=== PATIENT | female | born 1960 | race Caucasian/White ===

== ENCOUNTER 2017-01-22 00:43 | Emergency (ER) | payer MEDICARE, MEDICAID ==
[2017-01-22] MEDS ORDERED: NS 0.9% 1000 ML* 1,000 ML IV ONE (03:22)
[2017-01-22] MEDS ORDERED: predniSONE TAB* 20 MG PO ONE (03:23)
[2017-01-22] MEDS ORDERED: Albuterol/Ipratropium NEB.SOL* Albuterol 2.5 MG/Ipratropium 0.5 MG 3 ML INH ONE (03:23)
[2017-01-22] MEDS ORDERED: Magnesium Sulfate 1 GM IV* 1 GM/100 ML BAG IV ONE (03:24)
[2017-01-22 04:28] LABS: Hematocrit 42 % (35-47); Mean Corpuscular HGB Conc 33 g/dl (31-36); Mean Corpuscular Hemoglobin 31 pg (27-31); Mean Corpuscular Volume 94 fL (80-97); Mean Platelet Volume 7 um3 (7.4-10.4); Red Cell Distribution Width 14 % (10.5-15); White Blood Count 12.7 10^3/ul (3.5-10.8)
[2017-01-22 04:38] LABS: Blood Urea Nitrogen 10 mg/dL (6-24); CO2 Carbon Dioxide 30 mmol/L (22-32); Calcium 9.2 mg/dL (8.6-10.3); Chloride 101 mmol/L (101-111); EGFR African American 91.1 (>60); EGFR Non-African American 70.9 (>60); Glucose 104 mg/dL (70-100); Sodium 135 mmol/L (133-145)
[2017-01-22 04:42] LABS: Anion Gap 4 mmol/L (2-11)
[2017-01-22 05:46] VITALS: BP 101/57
--- NOTE | 2017-01-22 06:20 | ED ---
Candice López Gabriel, scribed for Manny Pennington MD on 01/22/17 at 0318 . Respiratory - HPI Summary HPI Summary: This patient is a 56 year old F presenting to [facility] accompanied by with a chief complaint of trouble breathing since 3 days ago. Patient reports NUNEZ, coughing, nasal congestion, chills, and bilateral LE cramping. Is on 2L NC at home. - History of Current Complaint Chief Complaint: EDShortnessOfBreath Stated Complaint: DIFF BREATHING Time Seen by Provider: 01/22/17 02:38 Hx Obtained From: Patient Onset/Duration: Lasting Days - 3, Still Present Timing: Constant Pain Intensity: 0 Character: Dyspnea on Exertion Aggravating Factor(s): Movement Associated Signs and Symptoms: SOB, Chills - Allergy/Home Medications Allergies/Adverse Reactions: Allergies Allergy/AdvReac Type Severity Reaction Status Date / Time Cefuroxime [From Ceftin] Allergy Hives Verified 01/22/17 02:35 Ciprofloxacin Allergy Hives Verified 01/22/17 02:35 Penicillins [PCN] Allergy Hives Verified 01/22/17 02:35 Sulfamethoxazole Allergy Hives Verified 01/22/17 02:34 w/Trimethoprim [From Bactrim] PMH/Surg Hx/FS Hx/Imm Hx Previously Healthy: No Endocrine/Hematology History: Denies: Hx Diabetes Respiratory History: Reports: Hx Chronic Obstructive Pulmonary Disease (COPD) - Immunization History Date of Influenza Vaccine: 12/2016 Infectious Disease History: No Infectious Disease History: Denies: Traveled Outside the [place] in Last 30 Days - Social History Alcohol Use: None Hx Substance Use: No Substance Use Type: Reports: None Hx Tobacco Use: Yes Smoking Status (MU): Former Smoker Review of Systems Positive: Chills Positive: Other - nasal congestion Positive: Shortness Of Breath, Cough, Other - NUNEZ Positive: Other - bilateral LE cramping All Other Systems Reviewed And Are Negative: Yes Physical Exam - Summary Physical Exam Summary: Appearance: Well appearing, no pain distress Skin: warm, dry, reflects adequate perfusion Head/face: normal Eyes: EOMI, DONAVON ENT: normal Clear nasal discharge Clear mucus in throat, no redness or tonsillar exudate no JVD, No strider in neck Neck: supple, non-tender Respiratory: Diminished breath sounds in left base, rustling breath sounds in periphery, no wheezings Cardiovascular: RRR, pulses symmetrical, tachycardia Abdomen: non-tender, soft Bowel: present Musculoskeletal: normal, strength/ROM intact Neuro: normal, sensory motor intact, A&Ox3 Triage Information Reviewed: Yes Vital Signs On Initial Exam: Initial Vitals Temp Pulse Resp BP Pulse Ox 98.4 F 105 20 124/74 97 01/22/17 00:48 01/22/17 00:48 01/22/17 00:48 01/22/17 00:48 01/22/17 00:48 Vital Signs Reviewed: Yes Diagnostics - Vital Signs Vital Signs Temp Pulse Resp BP Pulse Ox 01/22/17 02:30 94 21 105/69 98 01/22/17 02:16 93 21 96 01/22/17 02:15 112/76 01/22/17 00:48 98.4 F 105 20 124/74 97 - Laboratory Lab Results: Lab Results 01/22/17 01/22/17 01/22/17 Range/Units 04:05 04:05 04:05 WBC 12.7 H (3.5-10.8) 10^3/ul RBC 4.50 (4.0-5.4) 10^6/ul Hgb 14.0 (12.0-16.0) g/dl Hct 42 (35-47) % MCV 94 (80-97) fL MCH 31 (27-31) pg MCHC 33 (31-36) g/dl RDW 14 (10.5-15) % Plt Count 241 (150-450) 10^3/ul MPV 7 L (7.4-10.4) um3 Neut % (Auto) 73.2 (38-83) % Lymph % (Auto) 15.3 L (25-47) % [place] % (Auto) 8.0 (1-9) % Eos % (Auto) 2.2 (0-6) % Baso % (Auto) 1.3 (0-2) % Absolute Neuts (auto) 9.3 H (1.5-7.7) 10^3/ul Absolute Lymphs (auto) 2.0 (1.0-4.8) 10^3/ul Absolute Monos (auto) 1.0 H (0-0.8) 10^3/ul Absolute Eos (auto) 0.3 (0-0.6) 10^3/ul Absolute Basos (auto) 0.2 (0-0.2) 10^3/ul Absolute Nucleated RBC 0.01 10^3/ul Nucleated RBC % 0 Sodium 135 (133-145) mmol/L Potassium TNP Chloride 101 (101-111) mmol/L Carbon Dioxide 30 (22-32) mmol/L Anion Gap 4 (2-11) mmol/L BUN 10 (6-24) mg/dL Creatinine 0.83 (0.51-0.95) mg/dL Est GFR ( Amer) 91.1 (>60) Est GFR (Non-Af Amer) 70.9 (>60) BUN/Creatinine Ratio 12.0 (8-20) Glucose 104 H (70-100) mg/dL Lactic Acid 1.5 (0.5-2.0) mmol/L Calcium 9.2 (8.6-10.3) mg/dL Result Diagrams: 01/22/17 04:05 01/22/17 04:05 Lab Statement: Any lab studies that have been ordered have been reviewed, and results considered in the medical decision making process. - Radiology CXR Radiology Interpretation Completed By: ED Physician - No infiltrate, COPD - EKG 02:30 Cardiac Rate: NL EKG Rhythm: Sinus Rhythm - NSR at [address] Segment: Non-Specific EKG Interpretation: RAD Re-Evaluation - Re-Evaluation First Eval Re-Evaluation Time: 05:00 Change: Improved - Patient is feeling better after treatment Disposition - Course Course Of Treatment: pt with long standing COPD with increased SOB and mild viral sx. Tx here with improvement. IV access was unable to remain intact. She felt much better, sats were good and she was able to discharge. Cont outpt steroids, abx and refill Rx for nebs. - Differential Dx - Cardiopulmonary Differential Diagnoses - Cardiopulmonary: Exacerbation Of COPD, Lower Resp Infection, Pulmonary Edema - Diagnoses Provider Diagnoses: COPD exacerbation Discharge - Discharge Plan Condition: Improved Disposition: HOME Prescriptions: Albuterol 2.5MG/3ML (0.083%)* [Ventolin 2.5 MG/3 ML NEB.JIMMY*] 2.5 mg INH Q4H # 100 neb.jimmy Albuterol/Ipratropium NEB.JIMMY* [Duoneb (Albuterol 2.5 MG/Ipratropium 0.5 MG)] 1 neb INH Q6H PRN #30 neb.jimmy PRN Reason: Shortness Of Breath Levofloxacin TAB* [Levaquin TAB*] 500 mg PO DAILY #7 tab predniSONE TAB* [Deltasone TAB*] 50 mg PO DAILY #5 tab Patient Education Materials: COPD (Chronic Obstructive Pulmonary Disease) (ED) Referrals: Willy Lemon [Primary Care Provider] - Additional Instructions: Use breathing treatments every 4hrs until well. Return with fever, worse, new symptoms or other concerns. Call and inform your glaze handler that you had to come to ER and are on steroids. The documentation as recorded by the Candice villalta Gabriel accurately reflects the service I personally performed and the decisions made by , Manny Pennington MD.
--- NOTE | 2017-01-22 08:17 | RAD ---
Indication: Shortness of breath. 2 views of the chest including dual energy PA views demonstrates hyperinflated lung sellers. No evidence of alveolar consolidation is noted. No pleural fluid is identified. IMPRESSION: Hyperinflated lung sellers are noted. No active cardiopulmonary disease is noted.
== END 2017-01-22 05:40 | disposition home or self-care (01) ==
LOC: ED 00:43
DX: J44.1 Chronic obstructive pulmonary disease with (acute) exacerbation (principal); Z87.891 Personal history of nicotine dependence; Z88.0 Allergy status to penicillin; Z88.2 Allergy status to sulfonamides
CPT/HCPCS: 36415; 71020; 80048; 83605; 85025; 93005; 94640; 96360; 96374; 99284; A9270-GY; J3475; J7512

== ENCOUNTER 2017-02-19 10:17 | Observation (INO) | payer MEDICARE, MEDICAID ==
[2017-02-19] MEDS ORDERED: NS 0.9% 1000 ML*IV.FLUID IV ONE (10:42)
[2017-02-19] MEDS ORDERED: Albuterol/Ipratropium NEB.SOL* Albuterol 2.5 MG/Ipratropium 0.5 MG 3 ML INH ONE (10:43)
[2017-02-19] MEDS ORDERED: methylPREDNISolone 125 MG* 2 ML VIAL IV ONE (10:45)
[2017-02-19] MEDS ORDERED: Levofloxacin 750 MG IVPREMIX(* 750 MG/150 ML BAG IVPB ONE (10:45)
[2017-02-19 11:24] LABS: Eosinophil % 2.1 % (0-6); Hematocrit 41 % (35-47); Hemoglobin 13.6 g/dl (12.0-16.0); Lymphocyte % 16.6 % (25-47); Mean Corpuscular HGB Conc 33 g/dl (31-36); Mean Corpuscular Hemoglobin 31 pg (27-31); Mean Corpuscular Volume 94 fL (80-97); Nucleated Red Blood Cells % 0; Red Blood Count 4.39 10^6/ul (4.0-5.4); Red Cell Distribution Width 14 % (10.5-15)
[2017-02-19 11:32] LABS: INR 1.02 (0.77-1.02)
[2017-02-19 11:46] LABS: EGFR Non-African American 77.3 (>60)
[2017-02-19 11:51] LABS: Platelet Count 187 10^3/ul (150-450); White Blood Count 13.6 10^3/ul (3.5-10.8)
[2017-02-19 11:54] LABS: ABS Basophils 0.1 10^3/ul (0-0.2); ABS Eosinophils 0.3 10^3/ul (0-0.6); ABS Lymphocytes 2.3 10^3/ul (1.0-4.8); ABS Monocytes 1.2 10^3/ul (0-0.8); ABS Neutrophils 9.7 10^3/ul (1.5-7.7); ABS Nucleated RBC 0 10^3/ul
--- NOTE | 2017-02-19 12:30 | RAD ---
Indication: Shortness of breath, tachycardia. COPD. Comparison: January 22, 2017 Technique: Upright AP 1155 hours Report: Elevated lung volumes and both diffuse mild prominence of the interstitial markings and patchy rarefaction of the mid to upper lung zone interstitial markings. No focal pulmonary lesion, compelling alveolar consolidation, pleural effusion, pneumothorax. The heart, pulmonary vasculature, and mediastinal contours are unremarkable. IMPRESSION: Stigmata of obstructive lung disease. No acute pulmonary or cardiac process evident.
[2017-02-19] MEDS ORDERED: NS 0.9% 1000 ML* 1,000 ML IV ONE (14:45)
[2017-02-19 15:07] LABS: Urine Appearance Clear; Urine Blood 1+ (Negative); Urine Color Straw; Urine Ketones Negative (Negative); Urine Protein Negative (Negative); Urine Specific Gravity 1.003 (1.010-1.030); Urine Urobilinogen Negative (Negative)
[2017-02-19] MEDS ORDERED: Acetaminophen TAB* 325 MG PO PRN (17:39)
[2017-02-19] MEDS ORDERED: Al Hydrox/Mg Hydrox/Simet LIQ* 30 ML UDC PO PRN (17:39)
[2017-02-19] MEDS ORDERED: NS 0.9% 1000 ML* 1,000 ML IV SCH (17:45)
[2017-02-19] MEDS ORDERED: Atorvastatin* 20 MG TAB PO SCH (17:52)
[2017-02-19] MEDS ORDERED: traMADol TAB* 50 MG PO PRN (17:54)
--- NOTE | 2017-02-19 18:12 | ED ---
Fernanda López Abhishek, scribed for Jalen Kendrick MD on 02/19/17 at 1055 . Shortness of Breath - HPI Summary HPI Summary: This patient is a 56 year old F BIBA with a chief complaint of SOB since a few days ago. The patient rates the pain 0/10 in severity. Symptoms aggravated by nothing. Symptoms alleviated by nothing. Patient reports chills, diaphoresis, and vomited (one week ago), and pedal edema. Patient denies fevers, and abd pain , dysuria, painful urination, and diarrhea. Pt is taking aspirin 81 mg. (blood thinner), and also simvastatin (asthma). Pts pertinent PMHx includes COPD. - History of Current Complaint Chief Complaint: EDShortnessOfBreath Time Seen by Provider: 02/19/17 10:36 Hx Obtained From: Patient Onset/Duration: Gradual Onset - since a few days ago Aggrevating Factors: Nothing Alleviating Factors: Nothing Associated Signs & Symptoms: Chills, Diaphoresis, Edema - pedal - Allergy/Home Medications Allergies/Adverse Reactions: Allergies Allergy/AdvReac Type Severity Reaction Status Date / Time Cefuroxime [From Ceftin] Allergy Hives Verified 01/22/17 02:35 Ciprofloxacin Allergy Hives Verified 01/22/17 02:35 Penicillins [PCN] Allergy Hives Verified 01/22/17 02:35 Sulfamethoxazole Allergy Hives Verified 01/22/17 02:34 w/Trimethoprim [From Bactrim] PMH/Surg Hx/FS Hx/Imm Hx Endocrine/Hematology History: Denies: Hx Diabetes Respiratory History: Reports: Hx Asthma, Hx Chronic Obstructive Pulmonary Disease (COPD) - Immunization History Date of Influenza Vaccine: 12/09 Immunizations Up to Date: Yes Infectious Disease History: No Infectious Disease History: Denies: Traveled Outside the [place] in Last 30 Days - Family History Known Family History: Positive: Cardiac Disease, Hypertension, Diabetes - Social History Alcohol Use: None Hx Substance Use: No Substance Use Type: Reports: None Hx Tobacco Use: Yes Smoking Status (MU): Former Smoker Review of Systems Positive: Chills, Skin Diaphoresis. Negative: Fever ENT: Negative Cardiovascular: Negative Positive: Shortness Of Breath Positive: Vomiting. Negative: Abdominal Pain, Diarrhea Negative: dysuria, pain Positive: Edema - pedal Skin: Negative Neurological: Negative Psychological: Normal All Other Systems Reviewed And Are Negative: Yes Physical Exam - Summary Physical Exam Summary: General: Mildly ill appearing , no pain distress Skin: warm, color reflects adequate perfusion, dry Head: normal Eyes: EOMI, DONAVON ENT: Oral mucous dry Neck: supple, nontender Respiratory: Occasional wheezes Cardiovascular: Tachycardic Abdomen: soft, nontender Bowel: present Musculoskeletal: normal, strength/ROM intact, No pedal edema and no calf tenderness Neurological: normal, sensory/motor intact, A&O x3 Psychological: affect/mood appropriate Triage Information Reviewed: Yes Vital Signs On Initial Exam: Initial Vitals Temp Pulse Resp BP Pulse Ox 99.4 F 129 17 105/71 93 02/19/17 10:23 02/19/17 10:23 02/19/17 10:23 02/19/17 10:23 02/19/17 10:23 Vital Signs Reviewed: Yes - [place] Coma Scale Coma Scale Total: 15 Diagnostics - Vital Signs Vital Signs Temp Pulse Resp BP Pulse Ox 02/19/17 10:23 99.4 F 129 17 105/71 93 - Laboratory Lab Results: Lab Results 02/19/17 02/19/17 02/19/17 Range/Units 11:04 11:04 11:04 WBC (3.5-10.8) 10^3/ul RBC (4.0-5.4) 10^6/ul Hgb (12.0-16.0) g/dl Hct (35-47) % MCV (80-97) fL MCH (27-31) pg MCHC (31-36) g/dl RDW (10.5-15) % Plt Count (150-450) 10^3/ul MPV Neut % (Auto) (38-83) % Lymph % (Auto) (25-47) % Alpine % (Auto) (1-9) % Eos % (Auto) (0-6) % Baso % (Auto) (0-2) % Absolute Neuts (auto) (1.5-7.7) 10^3/ul Absolute Lymphs (auto) (1.0-4.8) 10^3/ul Absolute Monos (auto) (0-0.8) 10^3/ul Absolute Eos (auto) (0-0.6) 10^3/ul Absolute Basos (auto) (0-0.2) 10^3/ul Absolute Nucleated RBC 10^3/ul Nucleated RBC % INR (Anticoag Therapy) 1.02 (0.77-1.02) APTT 27.1 (26.0-36.3) seconds Sodium 134 (133-145) mmol/L Potassium 3.8 (3.5-5.0) mmol/L Chloride 98 L (101-111) mmol/L Carbon Dioxide 29 (22-32) mmol/L Anion Gap 7 (2-11) mmol/L BUN 7 (6-24) mg/dL Creatinine 0.77 (0.51-0.95) mg/dL Est GFR ( Amer) 99.4 (>60) Est GFR (Non-Af Amer) 77.3 (>60) BUN/Creatinine Ratio 9.1 (8-20) Glucose 132 H (70-100) mg/dL Lactic Acid (0.5-2.0) mmol/L Calcium 9.6 (8.6-10.3) mg/dL Total Bilirubin 0.80 (0.2-1.0) mg/dL AST 21 (13-39) U/L ALT 9 (7-52) U/L Alkaline Phosphatase 61 (34-104) U/L Total Creatine Kinase 63 (10-223) U/L Troponin I 0.00 (<0.04) ng/mL C-Reactive Protein 67.08 H (< 5.00) mg/L B-Natriuretic Peptide 27 ( - 100) pg/mL Total Protein 7.6 (6.4-8.9) g/dL Albumin 3.7 (3.2-5.2) g/dL Globulin 3.9 (2-4) g/dL Albumin/Globulin Ratio 0.9 L (1-3) Procalcitonin (<0.6) ng/mL Urine Color Urine Appearance Urine pH (5-9) Ur Specific Maynard (1.010-1.030) Urine Protein (Negative) Urine Ketones (Negative) Urine Blood (Negative) Urine Nitrate (Negative) Urine Bilirubin (Negative) Urine Urobilinogen (Negative) Ur Leukocyte Esterase (Negative) Urine WBC (Auto) (Absent) Urine RBC (Auto) (Absent) Ur Squamous Epith Cells (Absent) Urine Bacteria (Absent) Urine Glucose (Negative) Influenza A (Rapid) (Negative) Influenza B (Rapid) (Negative) 02/19/17 02/19/17 02/19/17 Range/Units 11:04 11:04 11:04 WBC 13.6 H (3.5-10.8) 10^3/ul RBC 4.39 (4.0-5.4) 10^6/ul Hgb 13.6 (12.0-16.0) g/dl Hct 41 (35-47) % MCV 94 (80-97) fL MCH 31 (27-31) pg MCHC 33 (31-36) g/dl RDW 14 (10.5-15) % Plt Count 187 (150-450) 10^3/ul MPV Not Reportable Neut % (Auto) 71.5 (38-83) % Lymph % (Auto) 16.6 L (25-47) % Alpine % (Auto) 9.0 (1-9) % Eos % (Auto) 2.1 (0-6) % Baso % (Auto) 0.8 (0-2) % Absolute Neuts (auto) 9.7 H (1.5-7.7) 10^3/ul Absolute Lymphs (auto) 2.3 (1.0-4.8) 10^3/ul Absolute Monos (auto) 1.2 H (0-0.8) 10^3/ul Absolute Eos (auto) 0.3 (0-0.6) 10^3/ul Absolute Basos (auto) 0.1 (0-0.2) 10^3/ul Absolute Nucleated RBC 0 10^3/ul Nucleated RBC % 0 INR (Anticoag Therapy) (0.77-1.02) APTT (26.0-36.3) seconds Sodium (133-145) mmol/L Potassium (3.5-5.0) mmol/L Chloride (101-111) mmol/L Carbon Dioxide (22-32) mmol/L Anion Gap (2-11) mmol/L BUN (6-24) mg/dL Creatinine (0.51-0.95) mg/dL Est GFR ( Amer) (>60) Est GFR (Non-Af Amer) (>60) BUN/Creatinine Ratio (8-20) Glucose (70-100) mg/dL Lactic Acid 1.3 (0.5-2.0) mmol/L Calcium (8.6-10.3) mg/dL Total Bilirubin (0.2-1.0) mg/dL AST (13-39) U/L ALT (7-52) U/L Alkaline Phosphatase (34-104) U/L Total Creatine Kinase (10-223) U/L Troponin I (<0.04) ng/mL C-Reactive Protein (< 5.00) mg/L B-Natriuretic Peptide ( - 100) pg/mL Total Protein (6.4-8.9) g/dL Albumin (3.2-5.2) g/dL Globulin (2-4) g/dL Albumin/Globulin Ratio (1-3) Procalcitonin 0.1 (<0.6) ng/mL Urine Color Urine Appearance Urine pH (5-9) Ur Specific Maynard (1.010-1.030) Urine Protein (Negative) Urine Ketones (Negative) Urine Blood (Negative) Urine Nitrate (Negative) Urine Bilirubin (Negative) Urine Urobilinogen (Negative) Ur Leukocyte Esterase (Negative) Urine WBC (Auto) (Absent) Urine RBC (Auto) (Absent) Ur Squamous Epith Cells (Absent) Urine Bacteria (Absent) Urine Glucose (Negative) Influenza A (Rapid) (Negative) Influenza B (Rapid) (Negative) 02/19/17 02/19/17 Range/Units 12:23 14:49 WBC (3.5-10.8) 10^3/ul RBC (4.0-5.4) 10^6/ul Hgb (12.0-16.0) g/dl Hct (35-47) % MCV (80-97) fL MCH (27-31) pg MCHC (31-36) g/dl RDW (10.5-15) % Plt Count (150-450) 10^3/ul MPV Neut % (Auto) (38-83) % Lymph % (Auto) (25-47) % Alpine % (Auto) (1-9) % Eos % (Auto) (0-6) % Baso % (Auto) (0-2) % Absolute Neuts (auto) (1.5-7.7) 10^3/ul Absolute Lymphs (auto) (1.0-4.8) 10^3/ul Absolute Monos (auto) (0-0.8) 10^3/ul Absolute Eos (auto) (0-0.6) 10^3/ul Absolute Basos (auto) (0-0.2) 10^3/ul Absolute Nucleated RBC 10^3/ul Nucleated RBC % INR (Anticoag Therapy) (0.77-1.02) APTT (26.0-36.3) seconds Sodium (133-145) mmol/L Potassium (3.5-5.0) mmol/L Chloride (101-111) mmol/L Carbon Dioxide (22-32) mmol/L Anion Gap (2-11) mmol/L BUN (6-24) mg/dL Creatinine (0.51-0.95) mg/dL Est GFR ( Amer) (>60) Est GFR (Non-Af Amer) (>60) BUN/Creatinine Ratio (8-20) Glucose (70-100) mg/dL Lactic Acid (0.5-2.0) mmol/L Calcium (8.6-10.3) mg/dL Total Bilirubin (0.2-1.0) mg/dL AST (13-39) U/L ALT (7-52) U/L Alkaline Phosphatase (34-104) U/L Total Creatine Kinase (10-223) U/L Troponin I (<0.04) ng/mL C-Reactive Protein (< 5.00) mg/L B-Natriuretic Peptide ( - 100) pg/mL Total Protein (6.4-8.9) g/dL Albumin (3.2-5.2) g/dL Globulin (2-4) g/dL Albumin/Globulin Ratio (1-3) Procalcitonin (<0.6) ng/mL Urine Color Straw Urine Appearance Clear Urine pH 6.0 (5-9) Ur Specific Maynard 1.003 L (1.010-1.030) Urine Protein Negative (Negative) Urine Ketones Negative (Negative) Urine Blood 1+ H (Negative) Urine Nitrate Negative (Negative) Urine Bilirubin Negative (Negative) Urine Urobilinogen Negative (Negative) Ur Leukocyte Esterase Negative (Negative) Urine WBC (Auto) Absent (Absent) Urine RBC (Auto) Trace(0-2/hpf) (Absent) Ur Squamous Epith Cells Present H (Absent) Urine Bacteria Absent (Absent) Urine Glucose Negative (Negative) Influenza A (Rapid) Negative (Negative) Influenza B (Rapid) Negative (Negative) Result Diagrams: 02/19/17 11:04 02/19/17 11:04 Lab Statement: Any lab studies that have been ordered have been reviewed, and results considered in the medical decision making process. - Radiology Chest X-ray Radiology Interpretation Completed By: Radiologist - CXR reveals, per radiologist, ? Stigmata of obstructive lung disease. No acute pulmonary or cardiac process evident. ED physician has reviewed this radiology report and agrees. - EKG 1045 EKG Rhythm: Sinus Tachycardia - 119 bpm Ectopy: None EKG Interpretation: An EKG at 1045 reveals borderline t-wave abnormalities Course/Dx - Course Course Of Treatment: ADMIT HOSPITALIST. CRITICAL CARE TIME LESS THAN 30 MINUTES. - Diagnoses Provider Diagnoses: COPD exacerbation, Bronchitis Discharge - Discharge Plan Condition: Stable Disposition: ADMITTED TO [facility] documentation as recorded by the Fernanda villalta Abhishek accurately reflects the service I personally performed and the decisions made by me, Jalen Kendrick MD.
[2017-02-19] MEDS: Albuterol 2.5 MG/3 ML NEB.SOL* (0.083%) INH SCH (21:02)
[2017-02-19] MEDS: Mometasone/Formoter 200/5 MDI INH SCH (21:05)
[2017-02-19] MEDS: Heparin VIAL(*) 5000 UNITS/ML VIAL (FIVE THOUSAND) SUBCUT SCH (21:51)
[2017-02-20] MEDS: Albuterol 2.5 MG/3 ML NEB.SOL* (0.083%) INH SCH ×3 (01:17→13:11)
[2017-02-20] MEDS ORDERED: Amitriptyline TAB* 25 MG PO SCH (01:53)
[2017-02-20] MEDS: Gabapentin CAP(*) 300 MG PO SCH ×2 (02:11→08:57)
--- NOTE | 2017-02-20 02:39 | HP ---
CC: [facility] * HISTORY AND PHYSICAL: DATE OF ADMISSION: 02/19/17 PROVIDER: Darlene Wiggins NP PRIMARY CARE PHYSICIAN: [facility]. ATTENDING PHYSICIAN WHILE IN THE HOSPITAL: Dr. Dusty Cortes * (report dictated by Darlene Wiggins NP). CHIEF COMPLAINT: 1. Shortness of breath. 2. COPD exacerbation. HISTORY OF PRESENT ILLNESS: Ms. Dixon is a 56year-old female patient. She carries a history of COPD, leukemia, which has been in remission for 11 years, GERD, and hypothyroidism, and she presented to the emergency room today with a 2 -day history of shortness of breath, fever and chills. She also reports that she has had a cough for the past 2 days and is productive with yellow green sputum. She does report that she does have chest pain with deep breath and cough that is reproducible. She denies any other symptoms. Denies nausea, vomiting, or diarrhea. Denies dysuria. She does report increased shortness of breath over the past 2 days. She also reports that she has had chills and positive for sweats. She denies any loss of appetite. She denies any edema. She denies any rashes or lesions. She denies any loss of consciousness. No fevers were reported. During her emergency room stay, routine lab work was obtained. Her white count was 13.6. C-reactive protein was 67.08. She did have a chest x-ray, which showed stigmata of obstructive lung disease, no acute pulmonary cardiac process is evident. She also did have an EKG that showed sinus tachycardia. While in the emergency room, she did receive Levaquin 750 mg. She also received Solu-Medrol 125. She received normal saline bolus. Blood cultures were also ordered and obtained. We were asked to see and evaluate the patient for admission due to her increased shortness of breath and COPD exacerbation. PAST MEDICAL HISTORY: Significant for: 1. COPD. 2. Leukemia, which she has been in remission x11 years. 3. GERD. 4. Hypothyroidism. 5. High cholesterol. MEDICATIONS: 1. Advair. 2. Spiriva. 3. Albuterol nebulizer. 4. Levothyroxine 125 mcg. 5. Tramadol. ALLERGIES TO MEDICATIONS: Include: 1. CEFTIN. 2. CIPRO. 3. PENICILLIN. 4. BACTRIM. She says that she has a rash with antibiotics. FAMILY HISTORY: Father and mother both with cardiac history of coronary artery disease. Father had first GA at the age of 35. Mother had an GA at age of 60 with multiple strokes. Diabetes in mother, 3 brothers and her sister all had diabetes and cancer. Father had lung cancer. SOCIAL HISTORY: The patient is a former smoker. She quit 7 to 8 years ago. Prior to that, she smoked a pack a day for approximately 30 years. She denies any alcohol use. Denies drug use. She is currently disabled. She is . In the event, she is unable to make her own medical decision, her surrogate decision maker is her son, Rk Dixon, SALLY or her son, Soren Dixon. REVIEW OF SYSTEMS: There was no documented fever. There has been no significant weight change. There was no double vision. No ear discharge. Denies any rhinorrhea. Denies sore throat. She does report chest pain with deep breath and coughing that is reproducible. She does report that she has had increased shortness of breath and she also reports cough. She denies abdominal pain. Denies nausea, vomiting or diarrhea. Denies dysuria or frequency. Denies hematuria. Denies any seizures. Denies loss of consciousness. Denies any pruritus or skin ulcerations. Denies any difficulty swallowing. She does report that she has chronic muscle and joint aches. A review of 14 systems was completed and all others were negative. PHYSICAL EXAMINATION GENERAL: At this time, Ms. Dixon is a 56-year-old female. She appears to be in no acute distress, sitting on the stretcher in the emergency room. VITAL SIGNS: Blood pressure was 109/60, heart rate is 85, respirations are 18, O2 sat is 99% on 4 L nasal cannula. Initially, on arrival to the ER, she was 105/71, her blood pressure has been as low as 70/50. HEENT: Head is atraumatic, normocephalic. Eyes: EOMs are intact. Sclerae anicteric, not pale. Oral mucosa appeared to be moist. NECK: Supple. LUNGS: Lung sounds are diminished throughout. She does have rhonchi in the right base. There is no accessory muscle use noted. There is no wheezing at this time. CARDIAC: Heart sounds S1, S2. Regular rate and rhythm. There are no murmurs, rubs, or gallops. She is regular rate and rhythm. ABDOMEN: Soft and nontender. Bowel sounds are present x4. EXTREMITIES: Pulses are +2 throughout. She does move all extremities. Strength is 5/5. There is no edema noted. NEUROLOGIC: She is alert and oriented x3. Her speech is clear and there are no gross focal deficits noted. SKIN: Intact. DIAGNOSTIC STUDIES: WBC is 13.6, hemoglobin is 13.6, hematocrit of 41, platelet count was 187. INR is 1.02. Sodium was 134, potassium 3.8, chloride 98, carbon dioxide 29, BUN 7, creatinine 0.77, troponin was 0.00. Glucose was 132, calcium was 9.6. C-reactive protein was 67.08. BNP was 27. EKG today shows a rhythm at a rate of 99. Chest x-ray showed stigmata of obstructive lung disease, no acute pulmonary or cardiac process is evident. This is the radiologist's impression. ASSESSMENT AND PLAN: Ms. Dixon is a 56-year-old female that presented to the emergency room today with complaints of increased shortness of breath and cough for the past 2 days. We were asked to evaluate because of her increased shortness of breath and elevated white count. She will be admitted inpatient form. 1. Chronic obstructive pulmonary disease exacerbation. We will titrate her oxygen to be keep sats above 92%, albuterol nebs q.6 hours as needed for shortness of breath. We will continue her Advair. We will continue her Spiriva. She will be placed on prednisone 50 mg p.o. daily. I will also start her on Levaquin 500 mg IV every 24 hours. 2. Leukocytosis. I suspect this is related to the chronic use of steroids. Blood cultures are pending at this time. She has a sputum culture C and S sent. 3. Hypothyroid. We will continue on her levothyroxine 125 mcg. 4. Palpitations. The patient reports that EMS told her she was in atrial fibrillation. We will place her on telemetry and monitor her heart rate and rhythm. She does report that she does get palpitations when she gets short of breath. I will repeat a TSH in the morning. 5. FEN. She will be placed on a regular diet. 6. Code status. She is a full code. 7. DVT prophylaxis. She will be placed on heparin subcu. 8. Disposition. She will be admitted. TIME SPENT: Time spent on this admission was approximately 60 minutes, greater than half the time was spent [id number] with the patient obtaining my history and physical, the other half of the time has been going over my plan of care with the patient and implementing the plan of care. I have discussed my plan of care with my attending, Dr. Dusty Cortes, and he is in agreement with my plan. DARLENE WIGGINS, FINANCIAL [employer]STITUTION VICE PRESIDENT [id number]/[facility] #: [id number] ARISTEO
[2017-02-20] MEDS: Heparin VIAL(*) 5000 UNITS/ML VIAL (FIVE THOUSAND) SUBCUT SCH ×2 (05:31→15:40)
[2017-02-20] MEDS ORDERED: Levothyroxine TAB* 125 MCG TAB PO SCH (06:00)
[2017-02-20 07:39] LABS: ABS Basophils 0 10^3/ul (0-0.2); ABS Eosinophils 0 10^3/ul (0-0.6); ABS Lymphocytes 0.5 10^3/ul (1.0-4.8); ABS Monocytes 0.5 10^3/ul (0-0.8); ABS Neutrophils 6.5 10^3/ul (1.5-7.7); ABS Nucleated RBC 0.01 10^3/ul; Eosinophil % 0 % (0-6); Hematocrit 36 % (35-47); Hemoglobin 12.3 g/dl (12.0-16.0); Lymphocyte % 6.6 % (25-47); Mean Corpuscular HGB Conc 34 g/dl (31-36); Mean Corpuscular Hemoglobin 31 pg (27-31); Mean Corpuscular Volume 93 fL (80-97); Mean Platelet Volume 7 um3 (7.4-10.4); Nucleated Red Blood Cells % 0.1; Platelet Count 172 10^3/ul (150-450); Red Blood Count 3.91 10^6/ul (4.0-5.4); Red Cell Distribution Width 14 % (10.5-15); White Blood Count 7.5 10^3/ul (3.5-10.8)
[2017-02-20 07:41] VITALS: BP 123/66
[2017-02-20] MEDS: Mometasone/Formoter 200/5 MDI INH SCH (07:58)
[2017-02-20 08:04] LABS: EGFR Non-African American 95.6 (>60)
[2017-02-20] MEDS ORDERED: predniSONE TAB* 50 MG PO SCH (09:00)
[2017-02-20] MEDS ORDERED: Tiotropium CAP.INH* CAP.INH/18 MCG (USE ORDER SET !) INH SCH (09:00)
[2017-02-20] MEDS ORDERED: Spiriva Inhaler DEVICE* 1 EACH DEVICE INH ONE (09:00)
[2017-02-20] MEDS ORDERED: Levofloxacin 500 MG IVPREMIX(* 500 MG/100 ML BAG IVPB SCH (11:00)
--- NOTE | 2017-02-20 12:36 | PN ---
Subjective Date of Service: 02/20/17 Interval History: Awake to verbal stimuli. States that her breathing is better. c/o generalized chest pain with deep breath and cough. Reproducible. Denies increased shortness of breath. Denies fever or chills. Denies nausea, vomiting or diarrhea. Denies abd pain. Denies urinary symptoms. Family History: Unchanged from Admission Social History: Unchanged from Admission Past Medical History: Unchanged from Admission Objective Active Medications: Acetaminophen (Tylenol Tab*) 650 mg PO Q4H PRN PRN Reason: FEVER/PAIN Al Hydrox/Mg Hydrox/Simethicone (Maalox Plus*) 30 ml PO Q6H PRN PRN Reason: INDIGESTION Albuterol (Ventolin 2.5 Mg/3 Ml Neb.Yanni*) 2.5 mg INH [id number] AWAKE [facility] Last Admin: 02/20/17 07:55 Dose: 2.5 mg Amitriptyline HCl (Elavil Tab*) 25 mg PO BEDTIME [facility] Last Admin: 02/20/17 02:11 Dose: 25 mg Atorvastatin Calcium (Lipitor*) 20 mg PO 1700 [facility] Last Admin: 02/19/17 18:58 Dose: 20 mg Gabapentin (Neurontin Cap(*)) 300 mg PO BID [facility] Last Admin: 02/20/17 08:57 Dose: 300 mg Heparin Sodium (Porcine) (Heparin Vial(*)) 5,000 units SUBCUT Q8HR [facility] Last Admin: 02/20/17 05:31 Dose: 5,000 units Sodium Chloride (Ns 0.9% 1000 Ml*) 1,000 mls @ 75 mls/hr IV PER RATE [facility] Last Admin: 02/19/17 18:34 Dose: 75 mls/hr Levofloxacin/Dextrose (Levaquin 500 Mg Ivpremix(*)) 500 mg in 100 mls @ 100 mls /hr IVPB 1100 [facility] Last Admin: 02/20/17 10:38 Dose: 100 mls/hr Levothyroxine Sodium (Synthroid Tab*) 125 mcg PO 0600 [facility] Last Admin: 02/20/17 05:31 Dose: 125 mcg Mometasone Furoate/Formoterol Fumar (Dulera 200/5 Mdi*) 2 puff INH BID [facility] Last Admin: 02/20/17 07:58 Dose: 2 puff Prednisone (Deltasone Tab*) 50 mg PO DAILY [facility] Last Admin: 02/20/17 08:57 Dose: 50 mg Tiotropium Cosby (Spiriva Cap.Inh*) 1 cap INH DAILY [facility] Last Admin: 02/20/17 07:57 Dose: 1 cap Tramadol HCl (Ultram*) 50 mg PO Q6H PRN PRN Reason: PAIN Vital Signs - 8 hr 02/20/17 02/20/17 02/20/17 07:32 07:55 08:00 Temperature 98.0 F Pulse Rate 87 88 Respiratory 17 18 16 Rate Blood Pressure 123/66 (mmHg) O2 Sat by Pulse 97 97 98 Oximetry 02/20/17 02/20/17 08:57 11:33 Temperature Pulse Rate Respiratory 18 16 Rate Blood Pressure (mmHg) O2 Sat by Pulse Oximetry Oxygen Devices in Use Now: Nasal Cannula - 2 liters Appearance: awake and alert to verbal, appears comfortable Ears/Nose/Mouth/Throat: Mucous Membranes Moist Neck: NL Appearance and Movements; NL JVP, Trachea Midline Respiratory: Symmetrical Chest Expansion and Respiratory Effort, - - diminshed on the right Cardiovascular: NL Sounds; No Murmurs; No JVD, RRR, No Edema Abdominal: NL Sounds; No Tenderness; No Distention Extremities: No Edema, No Clubbing, Cyanosis Skin: No Rash or Ulcers Neurological: Alert and Oriented x 3 Result Diagrams: 02/20/17 06:53 02/20/17 06:53 Additional Lab and Data: Lab Results 02/19/17 02/19/17 02/19/17 Range/Units 11:04 11:04 11:04 WBC (3.5-10.8) 10^3/ul RBC (4.0-5.4) 10^6/ul Hgb (12.0-16.0) g/dl Hct (35-47) % MCV (80-97) fL MCH (27-31) pg MCHC (31-36) g/dl RDW (10.5-15) % Plt Count (150-450) 10^3/ul MPV Neut % (Auto) (38-83) % Lymph % (Auto) (25-47) % [place] % (Auto) (1-9) % Eos % (Auto) (0-6) % Baso % (Auto) (0-2) % Absolute Neuts (auto) (1.5-7.7) 10^3/ul Absolute Lymphs (auto) (1.0-4.8) 10^3/ul Absolute Monos (auto) (0-0.8) 10^3/ul Absolute Eos (auto) (0-0.6) 10^3/ul Absolute Basos (auto) (0-0.2) 10^3/ul Absolute Nucleated RBC 10^3/ul Nucleated RBC % INR (Anticoag Therapy) 1.02 (0.77-1.02) APTT 27.1 (26.0-36.3) seconds Sodium 134 (133-145) mmol/L Potassium 3.8 (3.5-5.0) mmol/L Chloride 98 L (101-111) mmol/L Carbon Dioxide 29 (22-32) mmol/L Anion Gap 7 (2-11) mmol/L BUN 7 (6-24) mg/dL Creatinine 0.77 (0.51-0.95) mg/dL Est GFR ( Amer) 99.4 (>60) Est GFR (Non-Af Amer) 77.3 (>60) BUN/Creatinine Ratio 9.1 (8-20) Glucose 132 H (70-100) mg/dL Lactic Acid (0.5-2.0) mmol/L Calcium 9.6 (8.6-10.3) mg/dL Total Bilirubin 0.80 (0.2-1.0) mg/dL AST 21 (13-39) U/L ALT 9 (7-52) U/L Alkaline Phosphatase 61 (34-104) U/L Total Creatine Kinase 63 (10-223) U/L Troponin I 0.00 (<0.04) ng/mL C-Reactive Protein 67.08 H (< 5.00) mg/L B-Natriuretic Peptide 27 ( - 100) pg/mL Total Protein 7.6 (6.4-8.9) g/dL Albumin 3.7 (3.2-5.2) g/dL Globulin 3.9 (2-4) g/dL Albumin/Globulin Ratio 0.9 L (1-3) Procalcitonin (<0.6) ng/mL Urine Color Urine Appearance Urine pH (5-9) Ur Specific [place] (1.010-1.030) Urine Protein (Negative) Urine Ketones (Negative) Urine Blood (Negative) Urine Nitrate (Negative) Urine Bilirubin (Negative) Urine Urobilinogen (Negative) Ur Leukocyte Esterase (Negative) Urine WBC (Auto) (Absent) Urine RBC (Auto) (Absent) Ur Squamous Epith Cells (Absent) Urine Bacteria (Absent) Urine Glucose (Negative) Influenza A (Rapid) (Negative) Influenza B (Rapid) (Negative) 02/19/17 02/19/17 02/19/17 Range/Units 11:04 11:04 11:04 WBC 13.6 H (3.5-10.8) 10^3/ul RBC 4.39 (4.0-5.4) 10^6/ul Hgb 13.6 (12.0-16.0) g/dl Hct 41 (35-47) % MCV 94 (80-97) fL MCH 31 (27-31) pg MCHC 33 (31-36) g/dl RDW 14 (10.5-15) % Plt Count 187 (150-450) 10^3/ul MPV Not Reportable Neut % (Auto) 71.5 (38-83) % Lymph % (Auto) 16.6 L (25-47) % [place] % (Auto) 9.0 (1-9) % Eos % (Auto) 2.1 (0-6) % Baso % (Auto) 0.8 (0-2) % Absolute Neuts (auto) 9.7 H (1.5-7.7) 10^3/ul Absolute Lymphs (auto) 2.3 (1.0-4.8) 10^3/ul Absolute Monos (auto) 1.2 H (0-0.8) 10^3/ul Absolute Eos (auto) 0.3 (0-0.6) 10^3/ul Absolute Basos (auto) 0.1 (0-0.2) 10^3/ul Absolute Nucleated RBC 0 10^3/ul Nucleated RBC % 0 INR (Anticoag Therapy) (0.77-1.02) APTT (26.0-36.3) seconds Sodium (133-145) mmol/L Potassium (3.5-5.0) mmol/L Chloride (101-111) mmol/L Carbon Dioxide (22-32) mmol/L Anion Gap (2-11) mmol/L BUN (6-24) mg/dL Creatinine (0.51-0.95) mg/dL Est GFR ( Amer) (>60) Est GFR (Non-Af Amer) (>60) BUN/Creatinine Ratio (8-20) Glucose (70-100) mg/dL Lactic Acid 1.3 (0.5-2.0) mmol/L Calcium (8.6-10.3) mg/dL Total Bilirubin (0.2-1.0) mg/dL AST (13-39) U/L ALT (7-52) U/L Alkaline Phosphatase (34-104) U/L Total Creatine Kinase (10-223) U/L Troponin I (<0.04) ng/mL C-Reactive Protein (< 5.00) mg/L B-Natriuretic Peptide ( - 100) pg/mL Total Protein (6.4-8.9) g/dL Albumin (3.2-5.2) g/dL Globulin (2-4) g/dL Albumin/Globulin Ratio (1-3) Procalcitonin 0.1 (<0.6) ng/mL Urine Color Urine Appearance Urine pH (5-9) Ur Specific [place] (1.010-1.030) Urine Protein (Negative) Urine Ketones (Negative) Urine Blood (Negative) Urine Nitrate (Negative) Urine Bilirubin (Negative) Urine Urobilinogen (Negative) Ur Leukocyte Esterase (Negative) Urine WBC (Auto) (Absent) Urine RBC (Auto) (Absent) Ur Squamous Epith Cells (Absent) Urine Bacteria (Absent) Urine Glucose (Negative) Influenza A (Rapid) (Negative) Influenza B (Rapid) (Negative) 02/19/17 02/19/17 Range/Units 12:23 14:49 WBC (3.5-10.8) 10^3/ul RBC (4.0-5.4) 10^6/ul Hgb (12.0-16.0) g/dl Hct (35-47) % MCV (80-97) fL MCH (27-31) pg MCHC (31-36) g/dl RDW (10.5-15) % Plt Count (150-450) 10^3/ul MPV Neut % (Auto) (38-83) % Lymph % (Auto) (25-47) % [place] % (Auto) (1-9) % Eos % (Auto) (0-6) % Baso % (Auto) (0-2) % Absolute Neuts (auto) (1.5-7.7) 10^3/ul Absolute Lymphs (auto) (1.0-4.8) 10^3/ul Absolute Monos (auto) (0-0.8) 10^3/ul Absolute Eos (auto) (0-0.6) 10^3/ul Absolute Basos (auto) (0-0.2) 10^3/ul Absolute Nucleated RBC 10^3/ul Nucleated RBC % INR (Anticoag Therapy) (0.77-1.02) APTT (26.0-36.3) seconds Sodium (133-145) mmol/L Potassium (3.5-5.0) mmol/L Chloride (101-111) mmol/L Carbon Dioxide (22-32) mmol/L Anion Gap (2-11) mmol/L BUN (6-24) mg/dL Creatinine (0.51-0.95) mg/dL Est GFR ( Amer) (>60) Est GFR (Non-Af Amer) (>60) BUN/Creatinine Ratio (8-20) Glucose (70-100) mg/dL Lactic Acid (0.5-2.0) mmol/L Calcium (8.6-10.3) mg/dL Total Bilirubin (0.2-1.0) mg/dL AST (13-39) U/L ALT (7-52) U/L Alkaline Phosphatase (34-104) U/L Total Creatine Kinase (10-223) U/L Troponin I (<0.04) ng/mL C-Reactive Protein (< 5.00) mg/L B-Natriuretic Peptide ( - 100) pg/mL Total Protein (6.4-8.9) g/dL Albumin (3.2-5.2) g/dL Globulin (2-4) g/dL Albumin/Globulin Ratio (1-3) Procalcitonin (<0.6) ng/mL Urine Color Straw Urine Appearance Clear Urine pH 6.0 (5-9) Ur Specific [place] 1.003 L (1.010-1.030) Urine Protein Negative (Negative) Urine Ketones Negative (Negative) Urine Blood 1+ H (Negative) Urine Nitrate Negative (Negative) Urine Bilirubin Negative (Negative) Urine Urobilinogen Negative (Negative) Ur Leukocyte Esterase Negative (Negative) Urine WBC (Auto) Absent (Absent) Urine RBC (Auto) Trace(0-2/hpf) (Absent) Ur Squamous Epith Cells Present H (Absent) Urine Bacteria Absent (Absent) Urine Glucose Negative (Negative) Influenza A (Rapid) Negative (Negative) Influenza B (Rapid) Negative (Negative) Assess/Plan/Problems-Billing Assessment: This is a 56 y.o - Patient Problems (1) COPD (chronic obstructive pulmonary disease) with acute bronchitis Code(s): J44.0 - CHRONIC OBSTRUCTIVE PULMON DISEASE W ACUTE LOWER RESP INFCT; J20.9 - ACUTE BRONCHITIS, UNSPECIFIED SNOMED Code(s): 845822556870913 Comment: Levaquin 500mg dailiy for 7 days prednisone taper as directed increase fluids rest oxygen 2 liters nasal cannula follow up with your primary care provider in 4 to 7 days return if any worsening or new symptoms Follow up with Dr. Matt- office will call you with appointment (2) COPD exacerbation Code(s): J44.1 - CHRONIC OBSTRUCTIVE PULMONARY DISEASE W (ACUTE) EXACERBATION SNOMED Code(s): 166841801084672 Comment: Continue Nebulizers Prednisone taper as directed oxygen at 2 liters at home. (baseline) Status and Disposition: Discharge Home
--- NOTE | 2017-02-21 06:42 | DS ---
CC: [facility]; EDDA Mejia * DISCHARGE SUMMARY: DATE OF ADMISSION: 02/19/17 DATE OF DISCHARGE: 02/20/17 PROVIDER: Darlene Singh NP ATTENDING PHYSICIAN: Dr. Sarah Mark * (dictation provided by Darlene Singh NP). PRIMARY CARE PROVIDER: EDDA Mejia. PRIMARY DIAGNOSES: 1. Chronic obstructive pulmonary disease exacerbation. 2. Acute bronchitis. SECONDARY DIAGNOSES: 1. Gastroesophageal reflux disease. 2. Hypothyroidism. 3. High cholesterol. 4. History of leukemia, which has been in remission for 11 years. STUDIES WHILE IN THE HOSPITAL: Chest x-ray was done on 02/19/17. Radiologist' s impression: Stigmata of obstructive lung disease, no acute pulmonary or cardiac process evident. Electrocardiogram: Sinus tachycardia at a rate of 99. DISCHARGE MEDICATIONS: New home medications: 1. Levaquin 500 mg p.o. daily for 7 days. 2. Prednisone taper. Prednisone will be days 1 through 4, 40 mg; days 4 through 7, 20 mg; days 7 to 11, 10 mg; then medication will be stopped. Continued home meds: 1. Albuterol nebulizer. 2. Albuterol inhaler. 3. Amitriptyline 25 mg. 4. Fluticasone and salmeterol/Advair 500/50 one puff b.i.d. 5. Gabapentin 300 mg p.o. b.i.d. 6. Levothyroxine 125 mcg p.o. daily. 7. Simvastatin 40 mg p.o. daily. 8. Spiriva 1 puff inhaled daily. 9. Tramadol 50 mg p.o. as needed for pain. HISTORY OF PRESENT ILLNESS AND HOSPITAL COURSE: Ms. Dixon is a 56-year-old female patient, who carries a history of COPD and leukemia, which has been in remission for 11 years, GERD, and hypothyroidism. She presented to the emergency room with a 2-day history of shortness of breath, fever, and chills. She also reports that she has had a cough for the past 2 days that was productive with yellow green sputum. She also reports that she had chest pain with deep breath and coughing that was reproducible. She had increased shortness of breath and she had to increase her home oxygen from 2 to 4 L to help with her shortness of breath, so she presented to the emergency room. While in the emergency room, she required O2 via nasal cannula to maintain oxygen saturations of 93%. While in the emergency room, she received routine lab work, which showed a white count of 13.6. Her flu swabs were negative for both A and B. Her chest x-ray that was completed in the emergency room did show stigmata of obstructive lung disease, no acute pulmonary or cardiac process was evident. Her troponin was negative. Due to her increased need for oxygen, we were asked to admit her. While in the hospital, the patient was monitored on telemetry with no significant findings. Initially, she was told by the EMS that she had atrial fibrillation that was not evident during her telemetry monitoring during her hospital stay. Her shortness of breath has resolved and she feels like she is back on her baseline. Her oxygen was able to be weaned from 4 L to 2 L. I suspect that the hypoxia and shortness of breath is related to COPD exacerbation and acute bronchitis. She was placed on Levaquin 500 mg daily. She received 2 doses while in the hospital. Repeat CBC today shows a white count of 7.5, hemoglobin 12.3, hematocrit 36, platelet count 172. Potassium was 4.3, sodium 139, chloride 106, BUN 11, creatinine 0.64. Her glucose today was 155. The patient says that she feels that she is back at her baseline and would like to be discharged home. Her respirations are easy and even. She is not using any accessory muscles to breathe. She does still have a moist productive cough. Ms. Dixon is stable for discharge home today. Vital signs are as follows: Temperature is 98.0 orally, heart rate was 87, respirations were 18, O2 sat was 97% on 2 L, blood pressure 123/66. DISCHARGE PLAN: Ms. Dixon will be discharged back to home with her family. ACTIVITY: As tolerated. DIET: She may resume her regular diet. She will be placed on Levaquin 500 mg p.o. daily for 7 days. She will also be placed on a prednisone taper. She will receive prednisone 40 mg for days 1 through 4; days 4 through 7, she will get 20 mg, days 7 through 11, she will get 10 mg. She will also continue all of her previous home medication. She will need a followup with her primary care provider, Willy Rm RPA, in 4 to [address] Matt's office for Pulmonology and sent a referral to their office for followup. She will be a new patient in that office. They will contact her with a day and time of her followup appointment. The patient was advised to return to the emergency room if she had any increased shortness of breath. This is a summarized report of her medical history and hospital stay. For further details, please see the entire medical record. TIME SPENT: Time spent for this discharge was approximately 60 minutes. Greater than half the time was spent with the patient discussing the discharge plans and instructions. CONDITION ON DISCHARGE: Stable. DARLENE SINGH NP [id number]/[facility] #: [id number] ARISTEO
== END 2017-02-20 15:20 | disposition home or self-care (01) ==
LOC: ED 10:17 → MED 16:56 → INTOOBSV 16:56
PROVIDERS: ADMIT Hospitalist; ATTEND Hospitalist
DX: J44.1 Chronic obstructive pulmonary disease with (acute) exacerbation (principal); J20.9 Acute bronchitis, unspecified; R06.02 Shortness of breath; R68.83 Chills (without fever); R11.10 Vomiting, unspecified; Z87.891 Personal history of nicotine dependence
CPT/HCPCS: 36415; 71010; 80048; 80053; 81003; 81015; 82550; 83605; 83880; 84145; 84484; 85025; 85610; 85730; 86140; 87040; 87502; 93005; 94640; 94760; 96374; 99284; A9270-GY; G0378; J1644; J1956; J2930; J7512

== ENCOUNTER 2017-05-08 02:50 | Inpatient (IN) | payer MEDICARE, MEDICAID ==
[2017-05-08] MEDS ORDERED: Albuterol/Ipratropium NEB.SOL* Albuterol 2.5 MG/Ipratropium 0.5 MG 3 ML INH ONE ×3 (03:57→06:07)
[2017-05-08] MEDS ORDERED: guaiFENesin/CODIEN 100MG-10MG* 5 ML UDC PO ONE (03:58)
[2017-05-08] MEDS ORDERED: methylPREDNISolone 125 MG* 2 ML VIAL IV ONE (03:58)
[2017-05-08 04:08] LABS: ABS Basophils 0.1 10^3/ul (0-0.2); ABS Eosinophils 0.6 10^3/ul (0-0.6); ABS Monocytes 0.8 10^3/ul (0-0.8); ABS Neutrophils 3.5 10^3/ul (1.5-7.7); ABS Nucleated RBC 0 10^3/ul; Eosinophil % 8.2 % (0-6); Hematocrit 43 % (35-47); Hemoglobin 14.3 g/dl (12.0-16.0); Lymphocyte % 29.6 % (25-47); Mean Corpuscular HGB Conc 34 g/dl (31-36); Mean Corpuscular Hemoglobin 31 pg (27-31); Mean Corpuscular Volume 91 fL (80-97); Mean Platelet Volume 7 um3 (7.4-10.4); Nucleated Red Blood Cells % 0.1; Platelet Count 224 10^3/ul (150-450); Red Blood Count 4.66 10^6/ul (4.0-5.4); Red Cell Distribution Width 15 % (10.5-15); White Blood Count 6.9 10^3/ul (3.5-10.8)
[2017-05-08] MEDS ORDERED: NS 0.9% 1000 ML* 1,000 ML IV SCH (08:00)
--- NOTE | 2017-05-08 08:21 | RAD ---
INDICATION: Chest pain COMPARISON: Chest x-ray dated February 19, 2017 TECHNIQUE: Single AP portable view of the chest was obtained. FINDINGS: Image quality is compromised due to the relative inferiority of a portable chest x-ray. The heart and mediastinum exhibit normal size and contour. The lungs are grossly clear. There is no evidence of a large pleural effusion. Visualized bones are normal for the patient's age. IMPRESSION: No radiographic evidence for acute cardiopulmonary abnormality on this portable chest x-ray.
[2017-05-08] MEDS ORDERED: Spiriva Inhaler DEVICE* 1 EACH DEVICE INH ONE (09:00)
[2017-05-08] MEDS: Gabapentin CAP(*) 300 MG PO PRN ×2 (09:06→22:18)
[2017-05-08] MEDS: Omeprazole CAP* 20 MG PO SCH (09:07)
[2017-05-08] MEDS: Levothyroxine TAB* 150 MCG TAB PO SCH (09:08)
[2017-05-08] MEDS: Atorvastatin* 20 MG TAB PO SCH (09:09)
[2017-05-08] MEDS: Magnesium Oxide TAB* 400 MG PO SCH (09:09)
[2017-05-08] MEDS: Enoxaparin(*) 40 MG/0.4 ML SYR SUBCUT SCH (09:10)
[2017-05-08] MEDS: Azithromycin IV(*) 500 MG in NS 0.9% 250 ML* 250 ML IVPB SCH (09:11)
[2017-05-08] MEDS: Albuterol 2.5 MG/3 ML NEB.SOL* (0.083%) INH SCH ×4 (10:57→23:06)
[2017-05-08] MEDS: Tiotropium CAP.INH* CAP.INH/18 MCG (USE ORDER SET !) INH SCH (11:00)
[2017-05-08] MEDS: Mometasone/Formoter 200/5 MDI INH SCH ×2 (11:00→19:46)
--- NOTE | 2017-05-08 15:40 | ED ---
Candice López Gabriel, scribed for Juan Sen MD on 05/08/17 at 0356 . Respiratory - HPI Summary HPI Summary: This patient is a 57 year old F presenting to [facility] with a chief complaint of SOB for a couple weeks ago. Pt states today symptoms worse with ambulating short distances with difficulty catching her breath. Patient reports nonproductive cough. Pt denies and chest pain, lightheadedness or LE edema. Pt states minimal relief with increasing home O2 and home bronchodilators. - History of Current Complaint Chief Complaint: EDShortnessOfBreath Stated Complaint: SOB Time Seen by Provider: 05/08/17 03:49 Hx Obtained From: Patient Onset/Duration: Still Present Initial Severity: Moderate Current Severity: Moderate Pain Intensity: 0 Sputum Amount: Small Sputum Color: Clear Associated Signs and Symptoms: Chills - Allergy/Home Medications Allergies/Adverse Reactions: Allergies Allergy/AdvReac Type Severity Reaction Status Date / Time cefuroxime [From Ceftin] Allergy Hives Verified 05/08/17 03:02 ciprofloxacin Allergy Hives Verified 05/08/17 03:02 Penicillins Allergy Hives Verified 05/08/17 03:02 sulfamethoxazole Allergy Hives Verified 05/08/17 03:02 [From Bactrim] trimethoprim [From Bactrim] Allergy Hives Verified 05/08/17 03:02 Home Medications: Home Medications Magnesium Oxide TAB* [MagOx 400 TAB*] 400 mg PO DAILY 05/08/17 [History Confirmed 05/08/17] Omeprazole CAP* [Prilosec CAP* 20 MG] 20 mg PO DAILY 05/08/17 [History Confirmed 05/08/17] oxyCODONE/Acetamin 5/325 MG* [Percocet 5/325 TAB*] 1 tab PO BEDTIME PRN [History Confirmed 05/08/17] PMH/Surg Hx/FS Hx/Imm Hx Endocrine/Hematology History: Denies: Hx Diabetes Respiratory History: Reports: Hx Asthma, Hx Chronic Obstructive Pulmonary Disease (COPD) Sensory History: Reports: Hx Contacts or Glasses Denies: Hx Hearing Aid Opthamlomology History: Reports: Hx Contacts or Glasses - Immunization History Date of Influenza Vaccine: 12/09 Infectious Disease History: No Infectious Disease History: Denies: Traveled Outside the [place] in Last 30 Days - Family History Known Family History: Positive: Cardiac Disease, Hypertension, Diabetes - Social History Lives: With Family Alcohol Use: None Hx Substance Use: No Substance Use Type: Reports: None Hx Tobacco Use: Yes Smoking Status (MU): Former Smoker Review of Systems Positive: Chills Positive: Shortness Of Breath, Cough All Other Systems Reviewed And Are Negative: Yes Physical Exam - Summary Physical Exam Summary: Appearance: Well-appearing, no distress, Well-nourished Skin: Warm, color reflects adequate perfusion Head: Normal Head/Face inspection Eyes: Conjunctiva clear ENT: Normal inspection Neck: Supple, no nodes, no JVD. Respiratory: mild wheezing through the lung sellers. Prolonged expirations. Decreased air movement throughout; no respiratory distress. Cardio: RRR, No murmur, pulses normal, brisk capillary refill; no LE edema Abdomen: soft, nontender, no guarding, no rebound Bowel sounds: present Musculoskeletal: Strength Intact/ ROM intact. No calf tenderness. No edema. Neuro: Alert, muscle tone normal, speech normal, sensory/motor intact Psychological: Normal Triage Information Reviewed: Yes Vital Signs On Initial Exam: Initial Vitals Temp Pulse Resp BP Pulse Ox 99.0 F 118 25 98/75 90 05/08/17 02:56 05/08/17 02:56 05/08/17 02:56 05/08/17 02:56 05/08/17 02:56 Vital Signs Reviewed: Yes Diagnostics - Vital Signs Vital Signs Temp Pulse Resp BP Pulse Ox 05/08/17 03:31 109 25 106/78 94 05/08/17 03:15 117 18 89 05/08/17 03:13 138/101 05/08/17 02:56 99.0 F 118 25 98/75 90 - Laboratory Lab Results: Lab Results 05/08/17 05/08/17 Range/Units 03:31 03:31 WBC 6.9 (3.5-10.8) 10^3/ul RBC 4.66 (4.0-5.4) 10^6/ul Hgb 14.3 (12.0-16.0) g/dl Hct 43 (35-47) % MCV 91 (80-97) fL MCH 31 (27-31) pg MCHC 34 (31-36) g/dl RDW 15 (10.5-15) % Plt Count 224 (150-450) 10^3/ul MPV 7 L (7.4-10.4) um3 Neut % (Auto) 50.1 (38-83) % Lymph % (Auto) 29.6 (25-47) % Kay % (Auto) 11.3 H (0-7) % Eos % (Auto) 8.2 H (0-6) % Baso % (Auto) 0.8 (0-2) % Absolute Neuts (auto) 3.5 (1.5-7.7) 10^3/ul Absolute Lymphs (auto) 2.0 (1.0-4.8) 10^3/ul Absolute Monos (auto) 0.8 (0-0.8) 10^3/ul Absolute Eos (auto) 0.6 (0-0.6) 10^3/ul Absolute Basos (auto) 0.1 (0-0.2) 10^3/ul Absolute Nucleated RBC 0 10^3/ul Nucleated RBC % 0.1 Sodium 137 (133-145) mmol/L Potassium 3.7 (3.5-5.0) mmol/L Chloride 98 L (101-111) mmol/L Carbon Dioxide 32 (22-32) mmol/L Anion Gap 7 (2-11) mmol/L BUN 13 (6-24) mg/dL Creatinine 0.88 (0.51-0.95) mg/dL Est GFR ( Amer) 84.9 (>60) Est GFR (Non-Af Amer) 66.0 (>60) BUN/Creatinine Ratio 14.8 (8-20) Glucose 108 H (70-100) mg/dL Calcium 10.1 (8.6-10.3) mg/dL Total Bilirubin 0.40 (0.2-1.0) mg/dL AST 28 (13-39) U/L ALT 14 (7-52) U/L Alkaline Phosphatase 71 (34-104) U/L Total Protein 7.5 (6.4-8.9) g/dL Albumin 4.1 (3.2-5.2) g/dL Globulin 3.4 (2-4) g/dL Albumin/Globulin Ratio 1.2 (1-3) Result Diagrams: 05/08/17 03:31 05/08/17 03:31 Lab Statement: Any lab studies that have been ordered have been reviewed, and results considered in the medical decision making process. - Radiology CXR Radiology Interpretation Completed By: ED Physician - hyperinflated lung sellers consistent with COPD. No infectious process Re-Evaluation - Re-Evaluation First Eval Re-Evaluation Time: 05:11 Change: Improved - pt states breathing improved with nebs tx, however she contionues to have some respiratory tightness. plan for second nebs tx and reevaluation. Second Eval Re-Evaluation Time: 05:58 Change: Improved - Pt O2 sats 94% on 2L; pt with mild expiratory wheezes. pt with no respiratory distress. Plan for third nebs tx and reevaluation. Third Eval Re-Evaluation Time: 06:50 Change: Improved Comment: Pt given third nebs tx with mild improvement in symptoms. Attempted to ambulate pt in the ED on her home 2L O2, pt became dyspneic with mild exertion with O2 sats decreased to 80%. Plan for admission for further tx. Disposition - Course Course Of Treatment: Pt with minimal improvement with in symptoms with nebs tx x3. plan for admission with continuous, scheduled nebs tx and steroids. - Differential Dx - Cardiopulmonary Differential Diagnoses - Cardiopulmonary: Acute Dyspnea, Asthma, Bronchitis, CAD , CHF, Exacerbation Of COPD, GI Disease, Influenza, Myocardial Infarction, Myocarditis, Panic Disorder, Paroxysmal VT, Pericarditis, Pleurisy, Pneumothorax , Pulmonary Edema, Pulmonary Embolism - Diagnoses Provider Diagnoses: COPD exacerbation - Physician Notifications Discussed Care Of Patient With: Hospitalists Instructed by Provider To: Admit As Inpatient Discharge - Discharge Plan Condition: Stable Disposition: ADMITTED TO [facility] The documentation as recorded by the Candice villalta Gabriel accurately reflects the service I personally performed and the decisions made by , Juan Sen MD.
--- NOTE | 2017-05-08 16:02 | HP ---
CC: CHET Mejia HISTORY AND PHYSICAL: DATE OF ADMISSION: 05/08/17 PRIMARY CARE PROVIDER: CHET Mejia. CHIEF COMPLAINT: Shortness of breath. HISTORY OF PRESENT ILLNESS: Ms. Dixon is a 57-year-old female who has a history of COPD with chronic hypoxic respiratory failure on 2 L of oxygen continuously who presents to the emergency room with co mplaints of shortness of breath. She states the shortness breath has been present for the last coupl e of weeks and has been progressively worsening over that period of time. In addition to the shortne ss of breath, she states that she is having significant cough with clear thick sputum. She denies any fevers, but states that she has been having chills. She denies any nausea, vomiting or diarrhea. S he states her appetite; however, has been poor over this period of time. She denies any sick contact s. She does state that she feels achy all over, but this is chronic. PAST MEDICAL HISTORY: 1. COPD with chronic hypoxic respiratory failure, on 2 to 3 L of oxygen continuously. 2. History of AML, status post treatment, now in remission since 2006. 3. GERD. 4. Hypothyroidism. 5. Hyperlipidemia. PAST SURGICAL HISTORY: 1. Bartholin cyst removal. 2. Cholecystectomy. 3. x2. 4. Bilateral cataract extractions. 5. Tonsillectomy. MEDICATIONS: 1. Percocet 5/325, 1 tab p.o. q.h.s. p.r.n. pain. 2. Spiriva 1 puff inhaled daily. 3. Simvastatin 40 mg p.o. daily. 4. Omeprazole 20 mg p.o. daily. 5. Magnesium oxide 400 mg p.o. daily. 6. Synthroid 150 mcg p.o. daily. 7. Gabapentin 300 mg p.o. b.i.d. p.r.n. pain. 8. Advair 500/50, 1 puff inhaled twice daily. 9. Amitriptyline 25 mg p.o. q.h.s. 10. Albuterol 2 puffs inhaled q.4 hours p.r.n. shortness of breath. 11. Albuterol neb 1 neb inhaled q.4 hours p.r.n. shortness of breath. ALLERGIES: CIPRO, CEFTIN, BACTRIM and PENICILLIN. FAMILY HISTORY: Mom at the age of 71 of an AL. She also had a history of diabetes. Dad a t the age of 73 of lung cancer. SOCIAL HISTORY: The patient is a former smoker, she quit approximately 10 years ago. She denies any alcohol use. 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 She is . She has 2 children. She indicates that her son Thiago and Soren are her healthcare proxies. REVIEW OF SYSTEMS: Complete 11-system review of systems is obtained. Pertinent positives and negati ves as per HPI and in addition, the patient does complain of a bloated feeling in her abdomen and jaydon e depression over the last few weeks. PHYSICAL EXAMINATION GENERAL: The patient is a well-developed middle-aged obese female, seen sitting up in the stretcher in no acute distress. VITAL SIGNS: Blood pressure 104/64, pulse 105, respirations 20, temp 99.0, O2 sat 94% on 3 L. HEENT: Pupils are equal and round. Extraocular muscles intact. Oropharynx is clear. Oral mucosa i s moist. The patient wears upper and lower dentures. There is no submandibular, cervical or supracl avicular adenopathy. Thyroid is not enlarged. No thyroid nodules noted. PULMONARY: Lungs are clear, though breath sounds are diminished in all lung sellers. CARDIAC: Normal S1, S2. Heart rate is mildly tachycardic, but regular. There is no lower extremity edema. ABDOMEN: Bowel sounds present. Abdomen is soft, nontender, nondistended. MUSCULOSKELETAL: There is no cyanosis or clubbing of the digits. There is full active range of jasson on of all 4 extremities. SKIN: Warm and dry. There are no rashes. NEURO: Cranial nerves II through XII are grossly intact. Sensation is intact to light touch through out. Strength is 5/5 and symmetric in both upper and lower extremities bilaterally. PSYCH: The patient is alert. She is oriented x3. Affect appears appropriate. LABORATORY DATA/DIAGNOSTIC STUDIES: WBC 6.9, hemoglobin 14.3, hematocrit 43, platelets 224,000. So dium 137, potassium 3.7, chloride 98, CO2 of 32, BUN 13, creatinine 0.88, glucose 108, calcium 10.1, bilirubin 0.4. AST 28, ALT 14, alk phos 71, albumin 4.1. Influenza A and B pending. Chest x-ray appears to be clear to my evaluation. ASSESSMENT AND PLAN: Ms. Dixon is a 57-year-old female with a known history of chronic obstructive p ulmonary disease with chronic hypoxic respiratory failure on 2 L of oxygen continuously at home who p resents to the emergency room with a couple of weeks of progressive shortness of breath. 1. Chronic obstructive pulmonary disease exacerbation. The patient's symptoms are most consistent w ith a chronic obstructive pulmonary disease exacerbation. Her breath sounds are diminished. I do no t appreciate any significant wheezing at this point. However, the patient did receive several nebuli zer treatments in the emergency room. She will be admitted under observation status for routine nebu lizer treatments every 4 hours while awake. IV Solu-Medrol and IV azithromycin. A flu swab has been obtained and results of this are pending. We will get the patient ambulating and see how she feels over the next 24 hours. 2. Hypothyroidism. We will continue current dose of Synthroid. Her most recent TSH was on 04/10/17 and was noted to be quite elevated at 14.97. I will repeat her TSH today. 3. Gastroesophageal reflux disease. We will continue omeprazole. 4. Hyperlipidemia. We will continue simvastatin. 5. DVT prophylaxis. According to the Adult Thrombosis Prophylaxis Risk Factor Assessment Guide, the patient has a total risk factor score of 4 making her high risk. Lovenox 40 mg subcutaneous daily w ill be utilized as DVT prophylaxis. 6. Code status is full code. [id number]/[facility] #: [id number]
[2017-05-08] MEDS: Amitriptyline TAB* 25 MG PO SCH (21:20)
[2017-05-08] MEDS: oxyCODONE/Acetamin 5/325 MG* TAB PO PRN (22:19)
[2017-05-08] MEDS ORDERED: Albuterol 2.5 MG/3 ML NEB.SOL* (0.083%) INH PRN (23:58)
[2017-05-09] MEDS: Levothyroxine TAB* 150 MCG TAB PO SCH (06:16)
[2017-05-09] MEDS: Mometasone/Formoter 200/5 MDI INH SCH ×2 (07:51→19:32)
[2017-05-09] MEDS: Tiotropium CAP.INH* CAP.INH/18 MCG (USE ORDER SET !) INH SCH (07:51)
[2017-05-09] MEDS: Omeprazole CAP* 20 MG PO SCH (08:18)
[2017-05-09] MEDS: Atorvastatin* 20 MG TAB PO SCH (08:18)
[2017-05-09] MEDS: Magnesium Oxide TAB* 400 MG PO SCH (08:19)
[2017-05-09] MEDS: Azithromycin IV(*) 500 MG in NS 0.9% 250 ML* 250 ML IVPB SCH (08:19)
[2017-05-09] MEDS: Enoxaparin(*) 40 MG/0.4 ML SYR SUBCUT SCH (08:19)
--- NOTE | 2017-05-09 11:32 | PN ---
Subjective Date of Service: 05/09/17 Interval History: Pt is feeling about the same as when I admitted her yesterday. She states she is still getting quite SOB with just walking to the bathroom. She is ok at rest. She states she did not sleep well last night. Objective Active Medications: Albuterol (Ventolin 2.5 Mg/3 Ml Neb.Yanni*) 2.5 mg INH [id number] AWAKE PRN PRN Reason: SOB/WHEEZING Amitriptyline HCl (Elavil Tab*) 25 mg PO BEDTIME [facility] Last Admin: 05/08/17 21:20 Dose: 25 mg Atorvastatin Calcium (Lipitor*) 20 mg PO DAILY [facility] Last Admin: 05/09/17 08:18 Dose: 20 mg Enoxaparin Sodium (Lovenox(*)) 40 mg SUBCUT Q24H [facility] Last Admin: 05/09/17 08:19 Dose: 40 mg Gabapentin (Neurontin Cap(*)) 300 mg PO BID PRN PRN Reason: PAIN Last Admin: 05/08/17 22:18 Dose: 300 mg Azithromycin 500 mg/ Sodium (Chloride) 250 mls @ 250 mls/hr IVPB Q24H [facility] Last Admin: 05/09/17 08:19 Dose: 250 mls/hr Levothyroxine Sodium (Synthroid Tab*) 125 mcg PO 0600 [facility] Magnesium Oxide (Magox 400 Tab*) 400 mg PO DAILY [facility] Last Admin: 05/09/17 08:19 Dose: 400 mg Mometasone Furoate/Formoterol Fumar (Dulera 200/5 Mdi*) 2 puff INH BID [facility] Last Admin: 05/09/17 07:51 Dose: 2 puff Omeprazole (Prilosec Cap*) 20 mg PO 0730 [facility] Last Admin: 05/09/17 08:18 Dose: 20 mg Oxycodone/Acetaminophen (Percocet 5/325 Tab*) 1 tab PO BEDTIME PRN PRN Reason: PAIN Last Admin: 05/08/17 22:19 Dose: 1 tab Tiotropium [place] (Spiriva Cap.Inh*) 1 cap INH DAILY [facility] Last Admin: 05/09/17 07:51 Dose: 1 cap.inh Vital Signs - 8 hr 05/09/17 05/09/17 05/09/17 07:13 08:00 08:31 Temperature 97.7 F Pulse Rate 108 Respiratory 18 20 Rate Blood Pressure 87/42 115/69 (mmHg) O2 Sat by Pulse 96 Oximetry Oxygen Devices in Use Now: Nasal Cannula Appearance: Middle aged female sitting up in bed, appears wipped out, NAD Eyes: No Scleral Icterus Ears/Nose/Mouth/Throat: Mucous Membranes Moist Respiratory: Symmetrical Chest Expansion and Respiratory Effort, Clear to Auscultation - improved breath sounds but still slightly diminished throughout Cardiovascular: NL Sounds; No Murmurs; No JVD, RRR, No Edema Abdominal: NL Sounds; No Tenderness; No Distention Extremities: No Clubbing, Cyanosis Skin: No Nodules or Sclerosis Neurological: Alert and Oriented x 3 Result Diagrams: 05/08/17 03:31 05/08/17 03:31 Additional Lab and Data: Lab Results 05/08/17 05/08/17 Range/Units 03:31 03:31 WBC 6.9 (3.5-10.8) 10^3/ul RBC 4.66 (4.0-5.4) 10^6/ul Hgb 14.3 (12.0-16.0) g/dl Hct 43 (35-47) % MCV 91 (80-97) fL MCH 31 (27-31) pg MCHC 34 (31-36) g/dl RDW 15 (10.5-15) % Plt Count 224 (150-450) 10^3/ul MPV 7 L (7.4-10.4) um3 Neut % (Auto) 50.1 (38-83) % Lymph % (Auto) 29.6 (25-47) % [place] % (Auto) 11.3 H (0-7) % Eos % (Auto) 8.2 H (0-6) % Baso % (Auto) 0.8 (0-2) % Absolute Neuts (auto) 3.5 (1.5-7.7) 10^3/ul Absolute Lymphs (auto) 2.0 (1.0-4.8) 10^3/ul Absolute Monos (auto) 0.8 (0-0.8) 10^3/ul Absolute Eos (auto) 0.6 (0-0.6) 10^3/ul Absolute Basos (auto) 0.1 (0-0.2) 10^3/ul Absolute Nucleated RBC 0 10^3/ul Nucleated RBC % 0.1 Sodium 137 (133-145) mmol/L Potassium 3.7 (3.5-5.0) mmol/L Chloride 98 L (101-111) mmol/L Carbon Dioxide 32 (22-32) mmol/L Anion Gap 7 (2-11) mmol/L BUN 13 (6-24) mg/dL Creatinine 0.88 (0.51-0.95) mg/dL Est GFR ( Amer) 84.9 (>60) Est GFR (Non-Af Amer) 66.0 (>60) BUN/Creatinine Ratio 14.8 (8-20) Glucose 108 H (70-100) mg/dL Calcium 10.1 (8.6-10.3) mg/dL Total Bilirubin 0.40 (0.2-1.0) mg/dL AST 28 (13-39) U/L ALT 14 (7-52) U/L Alkaline Phosphatase 71 (34-104) U/L Total Protein 7.5 (6.4-8.9) g/dL Albumin 4.1 (3.2-5.2) g/dL Globulin 3.4 (2-4) g/dL Albumin/Globulin Ratio 1.2 (1-3) Microbiology and Other Data: Microbiology 05/08/17 07:57 Influenza Types A,B Antigen ([facility]) - Final Nasopharyngeal Specimen received for Influenza A/B Molecular testing Assess/Plan/Problems-Billing Ms Dixon is a 57 yo F who has a h/o COPD, chronic hypoxic respiratory failure on 2L O2 continuously, past h/o AML, hypothyroidism, HLD and GERD who presented to the ER with c/o 2 weeks of progressive SOB and was admitted for a COPD exacerbation. - Patient Problems (1) COPD exacerbation Current Visit: Yes Status: Acute Code(s): J44.1 - CHRONIC OBSTRUCTIVE PULMONARY DISEASE W (ACUTE) EXACERBATION SNOMED Code(s): 076030207227332 Comment: Pt feels about the same today as yesterday. Will continue standing nebs and solumedrol. Continue inhaled steroid and spiriva. Possibly home tomorrow on azithromycin and prednisone taper. Continue O2 at 2L continuously. (2) Hypothyroidism Current Visit: Yes Status: Acute Code(s): E03.9 - HYPOTHYROIDISM, UNSPECIFIED SNOMED Code(s): 77014788 Comment: TSH is slightly low and Free T4 is elevated-will decrease synthroid to 125mcg daily. (3) GERD (gastroesophageal reflux disease) Current Visit: Yes Status: Acute Code(s): K21.9 - GASTRO-ESOPHAGEAL REFLUX DISEASE WITHOUT ESOPHAGITIS SNOMED Code(s): 964830951 Comment: Continue omeprazole. (4) DVT prophylaxis Current Visit: Yes Status: Acute Code(s): CMI6896 - SNOMED Code(s): 150315874 Comment: lovenox (5) Full code status Current Visit: Yes Status: Acute Code(s): Z78.9 - OTHER SPECIFIED HEALTH STATUS SNOMED Code(s): 311662150
[2017-05-09] MEDS: Amitriptyline TAB* 25 MG PO SCH (21:18)
[2017-05-09] MEDS: oxyCODONE/Acetamin 5/325 MG* TAB PO PRN (21:18)
[2017-05-09] MEDS: Gabapentin CAP(*) 300 MG PO PRN (21:19)
[2017-05-10] MEDS ORDERED: Levothyroxine TAB* 125 MCG TAB PO SCH (06:00)
[2017-05-10] MEDS: Mometasone/Formoter 200/5 MDI INH SCH (07:40)
[2017-05-10] MEDS: Tiotropium CAP.INH* CAP.INH/18 MCG (USE ORDER SET !) INH SCH (07:40)
[2017-05-10] MEDS ORDERED: Albuterol 2.5 MG/3 ML NEB.SOL* (0.083%) INH PRN (08:20)
--- NOTE | 2017-05-10 08:21 | PN ---
Subjective Date of Service: 05/10/17 Interval History: Pt is feeling better today but she is still worried about being too SOB with walking. She denies any pain. She agrees to be re-evaluated later this afternoon to determine how she feels about going home. Objective Active Medications: Albuterol (Ventolin 2.5 Mg/3 Ml Neb.Yanni*) 2.5 mg INH [id number] AWAKE PRN PRN Reason: SOB/WHEEZING Amitriptyline HCl (Elavil Tab*) 25 mg PO BEDTIME [facility] Last Admin: 05/09/17 21:18 Dose: 25 mg Atorvastatin Calcium (Lipitor*) 20 mg PO DAILY [facility] Last Admin: 05/09/17 08:18 Dose: 20 mg Enoxaparin Sodium (Lovenox(*)) 40 mg SUBCUT Q24H [facility] Last Admin: 05/09/17 08:19 Dose: 40 mg Gabapentin (Neurontin Cap(*)) 300 mg PO BID PRN PRN Reason: PAIN Last Admin: 05/09/17 21:19 Dose: 300 mg Azithromycin 500 mg/ Sodium (Chloride) 250 mls @ 250 mls/hr IVPB Q24H [facility] Last Admin: 05/09/17 08:19 Dose: 250 mls/hr Levothyroxine Sodium (Synthroid Tab*) 125 mcg PO 0600 [facility] Last Admin: 05/10/17 05:53 Dose: 125 mcg Magnesium Oxide (Magox 400 Tab*) 400 mg PO DAILY [facility] Last Admin: 05/09/17 08:19 Dose: 400 mg Mometasone Furoate/Formoterol Fumar (Dulera 200/5 Mdi*) 2 puff INH BID [facility] Last Admin: 05/10/17 07:40 Dose: 2 puff Omeprazole (Prilosec Cap*) 20 mg PO 0730 [facility] Last Admin: 05/09/17 08:18 Dose: 20 mg Oxycodone/Acetaminophen (Percocet 5/325 Tab*) 1 tab PO BEDTIME PRN PRN Reason: PAIN Last Admin: 05/09/17 21:18 Dose: 1 tab Tiotropium [place] (Spiriva Cap.Inh*) 1 cap INH DAILY [facility] Last Admin: 05/10/17 07:40 Dose: 1 cap.inh Vital Signs - 8 hr 05/10/17 05/10/17 05/10/17 01:28 03:12 07:28 Temperature 98.1 F 97.5 F Pulse Rate 88 82 Respiratory 16 18 12 Rate Blood Pressure 105/52 87/60 (mmHg) O2 Sat by Pulse 95 96 Oximetry Oxygen Devices in Use Now: Nasal Cannula Appearance: Middle aged female sitting up in bed, NAD Eyes: No Scleral Icterus Ears/Nose/Mouth/Throat: Mucous Membranes Moist Respiratory: Symmetrical Chest Expansion and Respiratory Effort, Clear to Auscultation - mildly decreased breath sounds at the bases Cardiovascular: NL Sounds; No Murmurs; No JVD, RRR, No Edema Abdominal: NL Sounds; No Tenderness; No Distention Extremities: No Clubbing, Cyanosis Skin: No Rash or Ulcers, No Nodules or Sclerosis Neurological: Alert and Oriented x 3 Result Diagrams: 05/08/17 03:31 05/08/17 03:31 Additional Lab and Data: Lab Results 05/08/17 05/08/17 Range/Units 03:31 03:31 WBC 6.9 (3.5-10.8) 10^3/ul RBC 4.66 (4.0-5.4) 10^6/ul Hgb 14.3 (12.0-16.0) g/dl Hct 43 (35-47) % MCV 91 (80-97) fL MCH 31 (27-31) pg MCHC 34 (31-36) g/dl RDW 15 (10.5-15) % Plt Count 224 (150-450) 10^3/ul MPV 7 L (7.4-10.4) um3 Neut % (Auto) 50.1 (38-83) % Lymph % (Auto) 29.6 (25-47) % [place] % (Auto) 11.3 H (0-7) % Eos % (Auto) 8.2 H (0-6) % Baso % (Auto) 0.8 (0-2) % Absolute Neuts (auto) 3.5 (1.5-7.7) 10^3/ul Absolute Lymphs (auto) 2.0 (1.0-4.8) 10^3/ul Absolute Monos (auto) 0.8 (0-0.8) 10^3/ul Absolute Eos (auto) 0.6 (0-0.6) 10^3/ul Absolute Basos (auto) 0.1 (0-0.2) 10^3/ul Absolute Nucleated RBC 0 10^3/ul Nucleated RBC % 0.1 Sodium 137 (133-145) mmol/L Potassium 3.7 (3.5-5.0) mmol/L Chloride 98 L (101-111) mmol/L Carbon Dioxide 32 (22-32) mmol/L Anion Gap 7 (2-11) mmol/L BUN 13 (6-24) mg/dL Creatinine 0.88 (0.51-0.95) mg/dL Est GFR ( Amer) 84.9 (>60) Est GFR (Non-Af Amer) 66.0 (>60) BUN/Creatinine Ratio 14.8 (8-20) Glucose 108 H (70-100) mg/dL Calcium 10.1 (8.6-10.3) mg/dL Total Bilirubin 0.40 (0.2-1.0) mg/dL AST 28 (13-39) U/L ALT 14 (7-52) U/L Alkaline Phosphatase 71 (34-104) U/L Total Protein 7.5 (6.4-8.9) g/dL Albumin 4.1 (3.2-5.2) g/dL Globulin 3.4 (2-4) g/dL Albumin/Globulin Ratio 1.2 (1-3) Microbiology and Other Data: Microbiology 05/08/17 07:57 Influenza Types A,B Antigen ([place]) - Final Nasopharyngeal Specimen received for Influenza A/B Molecular testing Assess/Plan/Problems-Billing Ms Dixon is a 57 yo F who has a h/o COPD, chronic hypoxic respiratory failure on 2L O2 continuously, past h/o AML, hypothyroidism, HLD and GERD who presented to the ER with c/o 2 weeks of progressive SOB and was admitted for a COPD exacerbation. - Patient Problems (1) COPD exacerbation Current Visit: Yes Status: Acute Code(s): J44.1 - CHRONIC OBSTRUCTIVE PULMONARY DISEASE W (ACUTE) EXACERBATION SNOMED Code(s): 101721816860001 Comment: Pt feels better today but is worried about being too SOB with ambulation. She has not really walked any further than to the bathroom. Start prednisone today. She likley can go home this afternoon. Continue nebs but change to q4hr prn. Continue dulera and spiriva. (2) Hypothyroidism Current Visit: Yes Status: Acute Code(s): E03.9 - HYPOTHYROIDISM, UNSPECIFIED SNOMED Code(s): 95652154 Comment: TSH is slightly low and Free T4 is elevated-continue synthroid 125mcg daily. Repeat TSH and Free T4 in 4-6 weeks. (3) GERD (gastroesophageal reflux disease) Current Visit: Yes Status: Acute Code(s): K21.9 - GASTRO-ESOPHAGEAL REFLUX DISEASE WITHOUT ESOPHAGITIS SNOMED Code(s): 477134042 Comment: Continue omeprazole. (4) DVT prophylaxis Current Visit: Yes Status: Acute Code(s): ITT1696 - SNOMED Code(s): 741939143 Comment: lovenox (5) Full code status Current Visit: Yes Status: Acute Code(s): Z78.9 - OTHER SPECIFIED HEALTH STATUS SNOMED Code(s): 740206768
[2017-05-10] MEDS: Azithromycin IV(*) 500 MG in NS 0.9% 250 ML* 250 ML IVPB SCH (08:48)
[2017-05-10] MEDS: Omeprazole CAP* 20 MG PO SCH (08:49)
[2017-05-10] MEDS: Magnesium Oxide TAB* 400 MG PO SCH (08:50)
[2017-05-10] MEDS: Atorvastatin* 20 MG TAB PO SCH (08:53)
[2017-05-10] MEDS: Enoxaparin(*) 40 MG/0.4 ML SYR SUBCUT SCH (08:53)
[2017-05-10] MEDS ORDERED: predniSONE TAB* 20 MG PO SCH (09:00)
[2017-05-10 16:50] VITALS: BP 135/67
--- NOTE | 2017-05-11 13:56 | DS ---
CC: CHET Mejia * DISCHARGE SUMMARY: DATE OF ADMISSION: 05/08/17 DATE OF DISCHARGE: 05/10/17 PRIMARY CARE PROVIDER: CHET Mejia PRINCIPAL DIAGNOSIS: Chronic obstructive pulmonary disease exacerbation. SECONDARY DIAGNOSES: 1. Chronic hypoxic respiratory failure, on 2 to 3 L of oxygen continuously. 2. Gastroesophageal reflux disease. 3. Hypothyroidism. 4. Hyperlipidemia. 5. History of acute myelogenous leukemia status post treatment, now in remission. DISCHARGE MEDICATIONS: 1. Percocet 5/325, 1 tab p.o. q.h.s. p.r.n. pain. 2. Spiriva 1 puff inhaled daily. 3. Simvastatin 40 mg p.o. daily. 4. Omeprazole 20 mg p.o. daily. 5. Magnesium oxide 400 mg p.o. daily. 6. Gabapentin 300 mg p.o. b.i.d. p.r.n. pain. 7. Advair 500/50, 1 puff inhaled twice daily. 8. Amitriptyline 25 mg p.o. q.h.s. 9. Albuterol HFA 1 to 2 puffs inhaled q.4 hours p.r.n. shortness of breath. 10. Albuterol neb, 1 neb inhaled q.4 hours p.r.n. shortness of breath. 11. Prednisone 40 mg daily x2 days, then 30 mg x2 days, then 20 mg x2 days, then 10 x2 days. 12. Levothyroxine 125 mcg p.o. daily (reduced dose). 13. Azithromycin 250 mg p.o. daily x3 days. HOSPITAL COURSE: Ms. Dixon is a 57-year-old female with a known history of COPD with chronic hypoxic respiratory failure who presented to the emergency room with couple of weeks of progressive shortness of breath. She was admitted for a presumed COPD exacerbation. The patient was treated with steroids and azithromycin. She received standing nebulizer treatments. The patient's shortness of breath has improved some. She is still short of breath with exertion; however, at this point states that she is feeling better and believes that she can manage at home. The patient will continue on azithromycin 250 mg daily for 3 more days, a short prednisone taper, and she will continue with p.r.n. nebs. At this point, it was felt the patient is stable for discharge home. Of note, the patient's TSH was slightly low at 0.22 and her free T4 was slightly elevated at 1.74. Her Synthroid dose has been decreased to 125 mcg daily. She will need a followup TSH and free T4 in approximately 4 to 6 weeks. FOLLOWUP CONCERNS: The patient is being discharged to home today, 05/10/17. ACTIVITY LEVEL: As tolerated. DIET: Regular. CONDITION ON DISCHARGE: Stable. The patient is to follow up with CHET Mejia, in the next 4 to 7 days. TIME SPENT: 35 minutes were spent discharging this patient. [id number]/[facility] #: [id number] MTDD
== END 2017-05-10 16:45 | disposition home or self-care (01) | DRG 191 ==
LOC: ED 02:50 → MED 07:46 → OBSVTOIN 05-09 11:26
PROVIDERS: ADMIT Hospitalist; ATTEND Hospitalist
DX: J44.1 Chronic obstructive pulmonary disease with (acute) exacerbation (principal); J96.11 Chronic respiratory failure with hypoxia; Z99.81 Dependence on supplemental oxygen; K21.9 Gastro-esophageal reflux disease without esophagitis; E03.9 Hypothyroidism, unspecified; C95.91 Leukemia, unspecified, in remission; E78.5 Hyperlipidemia, unspecified; Z79.899 Other long term (current) drug therapy; Z88.1 Allergy status to other antibiotic agents; Z88.0 Allergy status to penicillin; Z88.8 Allergy status to other drugs, medicaments and biological substances; Z83.3 Family history of diabetes mellitus; Z82.49 Family history of ischemic heart disease and other diseases of the circulatory system; Z80.1 Family history of malignant neoplasm of trachea, bronchus and lung; Z87.891 Personal history of nicotine dependence
CPT/HCPCS: 36415; 71045; 80053; 84439; 84443; 85025; 87502; 94640; 94760; 99284; A9270-GY; G0378; J0456; J1650; J2930; J7512

== ENCOUNTER 2018-04-19 13:07 | Emergency (ER) | payer MEDICARE, MEDICAID ==
[2018-04-19] MEDS ORDERED: Albuterol/Ipratropium NEB.SOL* Albuterol 2.5 MG/Ipratropium 0.5 MG 3 ML INH ONE (13:51)
[2018-04-19] MEDS ORDERED: methylPREDNISolone 125 MG* 2 ML VIAL IV ONE (13:51)
--- NOTE | 2018-04-19 13:54 | ED ---
Shortness of Breath - HPI Summary HPI Summary: Pt is a 58 y/o F presenting to the ED with a chief complaint of shortness of breath on exertion noticed this morning when she went to the bathroom. She has 2L O2 at home. Pt reports a dry cough onset last night, chills, and diaphoresis. Pt denies fever, abd pain, or hx of smoking. - History of Current Complaint Chief Complaint: EDShortnessOfBreath Time Seen by Provider: 04/19/18 13:37 Hx Obtained From: Patient Onset/Duration: Sudden Onset, Lasting Days, Still Present Timing: Constant Current Severity: Moderate Dyspnea At: Exertion Aggrevating Factors: Movement Alleviating Factors: Oxygen, Other - rest Associated Signs & Symptoms: Cough (Nonproductive), Chills, Diaphoresis - Allergy/Home Medications Allergies/Adverse Reactions: Allergies Allergy/AdvReac Type Severity Reaction Status Date / Time cefuroxime [From Ceftin] Allergy Hives Verified 05/08/17 03:02 ciprofloxacin Allergy Hives Verified 05/08/17 03:02 Penicillins Allergy Hives Verified 05/08/17 03:02 sulfamethoxazole Allergy Hives Verified 05/08/17 03:02 [From Bactrim] trimethoprim [From Bactrim] Allergy Hives Verified 05/08/17 03:02 Home Medications: Home Medications Aspirin EC TAB* [Ecotrin EC Low Dose 81 MG*] 81 mg PO DAILY 04/19/18 [History Confirmed 04/19/18] Tramadol ER(NF) [Ultram HCl ER(NF)] 100 mg PO DAILY 04/19/18 [History Confirmed 04/19/18] PMH/Surg Hx/FS Hx/Imm Hx Previously Healthy: No Endocrine/Hematology History: Reports: Hx Thyroid Disease - hypothyroidism Denies: Hx Diabetes Respiratory History: Reports: Hx Asthma, Hx Chronic Obstructive Pulmonary Disease (COPD) Sensory History: Reports: Hx Contacts or Glasses, Hx Hearing Problem Denies: Hx Cataracts, Hx Deafness, Hx Hearing Aid Opthamlomology History: Reports: Hx Contacts or Glasses Denies: Hx Cataracts Neurological History: Denies: Hx Dementia - Surgical History Surgery Procedure, Year, and Place: Hip surgery - Immunization History Date of Influenza Vaccine: 12/09 Infectious Disease History: No Infectious Disease History: Denies: Hx Human Immunodeficiency Virus (HIV), Hx of Known/Suspected MRSA, Traveled Outside the [place] in Last 30 Days - Family History Known Family History: Positive: Cardiac Disease, Hypertension, Diabetes - Social History Alcohol Use: None Hx Substance Use: No Substance Use Type: Reports: None Hx Tobacco Use: Yes Smoking Status (MU): Former Smoker Review of Systems Positive: Chills, Skin Diaphoresis. Negative: Fever Positive: Shortness Of Breath, Cough Negative: Abdominal Pain All Other Systems Reviewed And Are Negative: Yes Physical Exam - Summary Physical Exam Summary: Appearance: Well appearing, no pain distress Skin: warm, dry, reflects adequate perfusion Head/face: normal Eyes: EOMI, DONAVON ENT: normal Neck: supple, non-tender Respiratory: Mild bilateral wheeze, breath sounds present Cardiovascular: Tachycardic, pulses symmetrical Abdomen: non-tender, soft Musculoskeletal: normal, strength/ROM intact Neuro: normal, sensory motor intact, A&Ox3 Triage Information Reviewed: Yes Vital Signs On Initial Exam: Initial Vitals Temp Pulse Resp BP Pulse Ox 99.6 F 113 22 98/69 97 04/19/18 13:19 04/19/18 13:19 04/19/18 13:19 04/19/18 13:19 04/19/18 13:19 Vital Signs Reviewed: Yes Diagnostics - Vital Signs Vital Signs Temp Pulse Resp BP Pulse Ox 04/19/18 13:19 99.6 F 113 22 98/69 97 - Laboratory Result Diagrams: 04/19/18 14:15 04/19/18 14:15 Lab Statement: Any lab studies that have been ordered have been reviewed, and results considered in the medical decision making process. - Radiology Chest x-ray Radiology Interpretation Completed By: Radiologist Summary of Radiographic Findings: No active cardiopulmonary disease. ED physician has reviewed this report. - EKG 1452 Cardiac Rate: NL - 99bpm EKG Rhythm: Sinus Rhythm ST Segment: Normal Ectopy: None Course/Dx - Course Course Of Treatment: Pt is a 58 y/o F presenting to the ED with a chief complaint of shortness of breath on exertion noticed this morning when she went to the bathroom. Pt reports a dry cough onset last night, chills, and diaphoresis. A chest x-ray shows no active cardiopulmonary disease. Pt's influenza tests were negative. Results discussed with patient, who is agreeable with the plan to discharge with a dx of COPD and bronchitis. - Diagnoses Differential Diagnosis/HQI/PQRI: Positive: Bronchitis, COPD Exacerbation, Pneumonia Provider Diagnoses: COPD (chronic obstructive pulmonary disease), Bronchitis Discharge - Sign-Out/Discharge Documenting (check all that apply): Patient Departure Patient Received Moderate/Deep Sedation with Procedure: No - Discharge Plan Condition: Stable Disposition: HOME Prescriptions: Albuterol HFA INHALER* [Ventolin HFA Inhaler*] 2 puff INH Q6H PRN #1 mdi MDD 4 PRN Reason: Sob/Wheezing Azithromycin TAB* [Zithromax TAB (Z-DASHAWN) 250 mg #6 tabs] 250 mg PO DAILY #4 tab predniSONE TAB* [Deltasone TAB*] 50 mg PO ONCE #5 tab Referrals: Willy Lemon [Primary Care Provider] - Additional Instructions: Please follow up with your primary care provider within the next three days. Return to the emergency department with any new or worsening symptoms. - Billing Disposition and Condition Condition: STABLE Disposition: Home - Attestation Statements Document Initiated by Scribe: Yes Documenting Scribe: Laura Fry Provider For Whom Ann is Documenting (Include Credential): Rodolfo Weller MD. Scribe Attestation: Laura López, benjamined for Rodolfo Weller MD. on 04/19/18 at 1546. Scribe Documentation Reviewed: Yes Provider Attestation: The documentation as recorded by the scribeLaura accurately reflects the service I personally performed and the decisions made by , Rodolfo Weller MD. Status of Scribe Document: Viewed
[2018-04-19 14:25] LABS: ABS Basophils 0 10^3/ul (0-0.2); ABS Eosinophils 0.1 10^3/ul (0-0.6); ABS Lymphocytes 0.9 10^3/ul (1.0-4.8); ABS Neutrophils 6.3 10^3/ul (1.5-7.7); ABS Nucleated RBC 0 10^3/ul; Eosinophil % 1.3 %; Hematocrit 45 % (35-47); Hemoglobin 14.6 g/dl (12.0-16.0); Lymphocyte % 11.3 %; Mean Corpuscular HGB Conc 33 g/dl (31-36); Mean Corpuscular Hemoglobin 31 pg (27-31); Mean Corpuscular Volume 93 fL (80-97); Mean Platelet Volume 6.6 fL (7.4-10.4); Nucleated Red Blood Cells % 0.1; Platelet Count 188 10^3/ul (150-450); Red Cell Distribution Width 16 % (10.5-15); White Blood Count 8.4 10^3/ul (3.5-10.8)
[2018-04-19 14:35] LABS: INR 0.96 (0.77-1.02)
[2018-04-19 14:49] LABS: Albumin 4.1 g/dL (3.2-5.2); Albumin/Globulin Ratio 1.2 (1-3); BUN/Creatinine Ratio 17.8 (8-20); Calcium 9.6 mg/dL (8.6-10.3); EGFR African American 77.5 (>60); EGFR Non-African American 64.1 (>60); Globulin 3.3 g/dL (2-4); Potassium 4.3 mmol/L (3.5-5.0); Total Bilirubin 0.5 mg/dL (0.2-1.0); Total Protein 7.4 g/dL (6.4-8.9)
[2018-04-19 15:24] LABS: Influenza A Molecular NEGATIVE (Negative); Influenza B Molecular NEGATIVE (Negative)
[2018-04-19] MEDS ORDERED: Azithromycin TAB* 250 MG PO ONE (15:35)
[2018-04-19 16:02] VITALS: BP 104/75
== END 2018-04-19 16:06 | disposition home or self-care (01) ==
LOC: ED 13:07
DX: J44.9 Chronic obstructive pulmonary disease, unspecified (principal); J40 Bronchitis, not specified as acute or chronic; R05 Cough; R06.02 Shortness of breath; Z88.0 Allergy status to penicillin; Z88.2 Allergy status to sulfonamides; Z87.891 Personal history of nicotine dependence
CPT/HCPCS: 36415; 71045; 80053; 82803; 83605; 83880; 84484; 85025; 85610; 85730; 93005; 99284; A9270-GY; J2930